=== PATIENT | female | born 1965 | race Caucasian/White ===

== ENCOUNTER → 2020-05-23 13:31 | Outpatient (BNVA) | payer OTHER, SELFPAY | PROVIDERS: PCP Internal Medicine; Referring Provider Internal Medicine; Visit Provider Nurse Practitioner | DX: Z76.89 Persons encountering health services in other specified circumstances (principal) ==

== ENCOUNTER → 2020-06-13 08:31 | Outpatient (BNVA) | payer OTHER, SELFPAY | PROVIDERS: Visit Provider Obstetrics & Gynecology | DX: Z76.89 Persons encountering health services in other specified circumstances (principal) ==

== ENCOUNTER 2020-06-16 12:48 | Outpatient (REF) | payer OTHER, SELFPAY ==
--- NOTE | 2020-06-16 13:05 | MR_ITS ---
EXAMINATION: MR BREAST WITHOUT AND WITH CONTRAST, BILATERAL CLINICAL INFORMATION: High-risk screening, calculated lifetime risk is reported at 41% by the Lucy model. Personal history of right breast atypia (ALH) in 2016. COMPARISON: Bilateral mammogram 03/22/2020, bilateral breast MRI 01/26/2016. TECHNIQUE: Imaging was performed with a dedicated breast coil. Prior to the administration of contrast, bilateral axial T1 and bilateral axial T2 weighted sequences were obtained. After the uneventful administration of?5.5 mL of Gadavist, dynamic contrast-enhanced VIBRANT series through the breasts in the axial plane were performed. Subtracted images were performed and reviewed. A delayed sagittal sequence through both breasts was acquired. Additionally, CAD post-processing, including maximum intensity projections, 3-D reconstructions and kinetic analysis, were performed an independent workstation and reviewed by the interpreting radiologist is a portion of this exam. FINDINGS: The breast tissue is composed of heterogeneously dense fibroglandular elements. There is minimal patchy parenchymal enhancement present bilaterally, which allowing for differences in scanning technique appears stable compared with 2016. LEFT BREAST: There are scattered enhancing foci present. A bilobed cyst is seen in the 9 o'clock position, posterior depth measuring 1.6 x 1.0 cm. In the 9 o'clock position, middle depth, 2 cm from the nipple (subtracted sequence image 79 of 124), there is an indistinct oval enhancing nodule measuring 0.6 cm; this demonstrates more prominent enhancement than on the prior exam and has indeterminate enhancement kinetics (type II enhancement curve). There is no skin thickening or nipple retraction present. RIGHT BREAST: There are scattered enhancing foci which one allowing for differences in technique, are stable. No suspicious masslike or non-masslike enhancement. No abnormal skin thickening or nipple retraction. No abnormal architectural distortion. Review of the T2 weighted images demonstrates no fibrocystic changes or dilated ducts. Review of kinetic images reveals no additional findings. There is no suspicious internal mammary chain or axillary adenopathy. Limited views of the chest and abdomen are unremarkable. There is a nonenhancing cyst in the left lobe of the liver measuring 1.5 cm. MR/MR breast BI wo/w con IMPRESSION: Oval enhancing nodule in the 9 o'clock position of the left breast has become more prominent and demonstrates indeterminate enhancement kinetics. ASSESSMENT: LEFT BREAST: BI-RADS 4, suspicious. RIGHT BREAST: BI-RADS 1, negative. RECOMMENDATIONS: MR-guided core biopsy is recommended for enhancing 0.6 cm nodule in the medial left breast. Results were called to Nieves Howell MA on 06/22/20 at 3:25 pm.
[2020-06-16 13:43] LABS: Blood Urea Nitrogen 12 mg/dL (9-16); Estimated Glomerular Filt Rate > 60
== END 2020-06-16 12:49 | disposition home or self-care (01) ==
LOC: HO.MRI 12:48
PROVIDERS: Visit Provider Obstetrics & Gynecology
DX: Z91.89 Other specified personal risk factors, not elsewhere classified (principal)
CPT/HCPCS: 77049; 82565; 84520; A9585

== ENCOUNTER 2020-07-12 08:58 | Outpatient (REF) | payer OTHER, SELFPAY ==
--- NOTE | 2020-07-12 | MM_ITS ---
This exam is included in a single combined report along with the MR guided left breast biopsy under accession number [id number].
--- NOTE | 2020-07-12 09:02 | MR_ITS ---
EXAMINATION: MR GUIDED VACUUM-ASSISTED CORE BIOPSY BREAST, LEFT MM DIGITAL MAMMOGRAPHY POST BIOPSY, LEFT CLINICAL INFORMATION: Indistinct oval enhancement 0.6 cm mid 9:00 right breast on recent high risk screening MRI. COMPARISON: MRI bilateral breasts 06/16/2020, mammography 03/22/2020. TECHNIQUE/PROCEDURE: Informed consent was obtained from the patient after discussion of the benefits, risks, and alternatives to biopsy today. Patient appeared to understand. Gave opportunity for questions. Patient signed consent form. Biopsy is performed under MRI guidance using breast surface coil. Imaging is performed without and with use of 5.5 mL Gadavist gadolinium contrast. [employer] introducer localization system is used with grid. LESION: Indistinct 0.6 cm oval enhancement 9:00 position anterior to bilobed cyst. LOCAL ANESTHESIA: 5 mL 1% lidocaine; 11 mL 1% lidocaine with epinephrine. NEEDLE: Jiong[employer] App 9-gauge vacuum assisted core biopsy device. APPROACH: Medial lateral approach was initially targeted. Due to grid arrangement limitations, access to the lesion was not possible from the medial side. Subsequently, targeting an procedure done lateral medial approach. CORES: 9. CLIP: TriMark cylinder shape clip deployed. Sheath removed and examined. No clip demonstrated in sheath. POSTPROCEDURE UNILATERAL DIGITAL MAMMOGRAM: Mammography is performed using digital mammography in CC, exaggerated CC, and ML views. There are scattered areas of fibroglandular density (ACR BI-RADS breast composition Category b). The clip marker is not demonstrated. No gross hematoma. The patient tolerated the procedure well. Home instructions reviewed with the patient. Final pathology results are pending. MR/MR guided breast biopsy LT IMPRESSION: 1. Status post MRI guided vacuum-assisted core biopsy left breast. 2. The biopsy clip marker is not demonstrated on the post-procedure mammogram. 3. Final pathology results pending. An addendum report will be issued.
[2020-07-12] MEDS: Lidocaine HCl 1 % MPF 5 ML VIAL SUBCUT (11:23)
[2020-07-12] MEDS: Lidocaine HCl 1%/Epi 1:100,000 20 ML VIAL INFILTRATI (11:28)
== END 2020-07-12 08:59 | disposition home or self-care (01) ==
LOC: HO.MRI 08:58
PROVIDERS: Visit Provider Obstetrics & Gynecology
DX: N63.20 Unspecified lump in the left breast, unspecified quadrant (principal); N64.9 Disorder of breast, unspecified; Z91.89 Other specified personal risk factors, not elsewhere classified; R92.0 Mammographic microcalcification found on diagnostic imaging of breast
CPT/HCPCS: 19085; 77065; 88305; A4648; A9585

== ENCOUNTER → 2020-08-30 14:18 | Outpatient (BNVA) | payer OTHER, SELFPAY | PROVIDERS: PCP Internal Medicine; Visit Provider Nurse Practitioner ==

== ENCOUNTER 2021-03-28 09:35 | Outpatient (REF) | payer OTHER, SELFPAY ==
--- NOTE | ~2021-03-28 | MM_ITS ---
EXAMINATION: MM DIAGNOSTIC DIGITAL BREAST TOMOSYNTHESIS, BILATERAL CLINICAL INFORMATION: Due for yearly. Also follow-up probable benign calcifications posterior outer right breast, possibly vascular. Difficulty targeting calcifications for sampling on 03/04/2019. Calcifications under extended surveillance. Prior history ALH right breast 2015 and ADH left breast 2010. Prior history benign left MR biopsy 07/12/2020 (benign breast tissue with fibrocystic changes and microcalcifications). The lifetime risk of breast cancer based on the Tyrer-Cuzick Model is 31%. COMPARISON: Mammography: 07/12/2020, 03/22/2020, 09/15/2019, 03/04/2019, 02/23/2019, 08/25/2018, 02/20/2018. TECHNIQUE: Digital breast tomosynthesis is performed in both the craniocaudal and mediolateral oblique views along with computer-aided detection (CAD). Synthesized 2D images are generated from the tomosynthesis. Additional magnification right CC and magnification right ML views are obtained. FINDINGS: There are scattered areas of fibroglandular density (ACR BI-RADS breast composition Category b). Breast tissue composition borders on heterogeneously dense. Parenchymal pattern is similar to prior studies. There is stable bilobed cyst posterior medial left breast. Smaller stable nodule right upper outer quadrant. No significant mass or architectural abnormality. The skin contours are smooth. Right breast calcifications for follow-up are stable from prior diagnostic magnification views. No change in past 2 years consistent with benign calcifications. Results are discussed with the patient at time of visit. MM/MM tomosynthesis diagnostic BI IMPRESSION: 1. No mammographic evidence of malignancy. 2. Right breast calcifications are stable and now considered to be benign. ASSESSMENT: BI-RADS 2: Benign RECOMMENDATION: 1. Routine annual mammography screening. 2. The lifetime risk of breast cancer based on the Tyrer-Cuzick Model is 31%. Additional annual adjunct screening with breast MRI may be of benefit in women with a risk score of 20% or greater. This patient's information was entered into a reminder system with a target due date for their next mammogram.
--- NOTE | ~2021-03-28 | MM_ITS ---
EXAMINATION: BONE DENSITOMETRY CLINICAL INDICATION: Myalgia, unspecified site. COMPARISON: Previous BD dated 09/21/2014 and baseline BD dated 07/25/2010. TECHNIQUE: Using a [employer] DXA System (software version: 13.1) manufactured by [employer], dual-energy x-ray absorptiometry was performed of the lumbar spine and left hip. The images are of good technical quality. Summary results are attached. FINDINGS: AP SPINE L1-L4: Current: BMD 0.921 g/cm2, Z-score -1.2, T-score -2.2, osteopenia, 3.0% decrease from previous, 7.0% decrease from baseline (<5% change is not significant). Prior: BMD 0.949 g/cm2. Baseline: BMD 0.990 g/cm2. LEFT FEMUR, NECK: Current: BMD 0.872 g/cm2, Z-score -0.1, T-score -1.2, osteopenia. Prior: BMD 0.951 g/cm2. Baseline: BMD 0.960 g/cm2. LEFT FEMUR, TOTAL: Current: BMD 0.890 g/cm2, Z-score -0.1, T-score -0.9, normal, 5.6% decrease from previous, 4.3% decrease from baseline (<5% change is not significant). Prior: BMD 0.943 g/cm2. Baseline: BMD 0.930 g/cm2. IDENTIFIED RISK FACTORS: Osteoporosis, low calcium intake, history of fracture (adult), secondary osteoporosis, menopause. HISTORY OF FRACTURE: Wrist. MEDICATIONS: None listed. MM/XR DEXA axial skeleton IMPRESSION: 1. DIAGNOSIS: Osteopenia based on the lowest T-score value of -2.2 in the lumbar spine applying World Health Organization criteria. 2. 10-YEAR FRACTURE RISK PREDICTION, FRAX: Major osteoporotic fracture (clinical spine, forearm, hip or shoulder) 9.6%. Hip fracture 0.7%. 3. Treatment Recommendations: NOF guidelines recommend consideration for treatment in postmenopausal women and men age 50 and older presenting with the following: -A hip or vertebral (clinical or morphometric) fracture. -T-score less than or equal to -2.5 at the femoral neck or spine after appropriate evaluation to exclude secondary causes. -Low bone mass at the hip or spine and a 10-year fracture probability by FRAX of greater than or equal to 3% for hip fracture or greater than or equal to 20% for major osteoporotic fracture based on the [place] adapted WHO algorithm. 4. Other Recommendations: All treatment decisions require clinical judgment and consideration of individual patient factors, including patient preferences, comorbidities, previous drug use, risk factors not captured in the FRAX model (e.g. frailty, falls, vitamin D deficiency, increased bone turnover, interval significant decline in bone density) and possible under or overestimation of fracture risk by FRAX. Additional medical evaluation for secondary cause of low bone mineral density may be appropriate. FUTURE SCAN RECOMMENDATION: People with diagnosed cases of osteoporosis or at high risk for fracture should have regular bone mineral density tests. For patients eligible for Medicare, routine testing is allowed once every 2 years. The testing frequency can be increased to one year for patients who have rapidly progressing disease, those who are receiving or discontinuing medical therapy to restore bone mass, or have additional risk factors.
== END 2021-03-28 09:36 | disposition home or self-care (01) ==
LOC: HO.MAMMO 09:35
PROVIDERS: PCP Internal Medicine; Visit Provider Surgery
DX: Z13.820 Encounter for screening for osteoporosis (principal); Z78.0 Asymptomatic menopausal state; M85.80 Other specified disorders of bone density and structure, unspecified site; M79.10 Myalgia, unspecified site; R92.1 Mammographic calcification found on diagnostic imaging of breast
CPT/HCPCS: 77062; 77066; 77080

== ENCOUNTER → 2021-04-04 14:46 | Outpatient (BNVA) | payer OTHER, SELFPAY | PROVIDERS: PCP Internal Medicine; Visit Provider Obstetrics & Gynecology ==

== ENCOUNTER → 2021-04-25 13:41 | Outpatient (BNVA) | payer OTHER, SELFPAY | PROVIDERS: PCP Internal Medicine; Referring Provider Internal Medicine; Visit Provider Surgery ==

== ENCOUNTER 2021-05-16 14:32 | Outpatient (REF) | payer OTHER, SELFPAY ==
--- NOTE | ~2021-05-16 | XR_ITS ---
EXAMINATION: XR HAND, LEFT CLINICAL INFORMATION: Dislocation of the fifth digit COMPARISON: None TECHNIQUE: PA, lateral, and oblique views of the left hand. FINDINGS: There is no acute fracture or dislocation. Hyperextended appearance of the fifth digit at the distal interphalangeal joint. Joint spaces appear maintained. The soft tissues appear unremarkable. Partially visualized fixation hardware of the distal radius. XR/XR hand LT 2V IMPRESSION: Somewhat hyperextended appearance of the fifth digit with no acute osseous abnormality. No dislocation seen.
[2021-05-16 16:33] LABS: MANUAL DIFF FLAG NO
[2021-05-16 17:20] LABS: Basophils Absolute Auto 0.1 X10*3/uL (0.0-0.2); Basophils Percent Auto 2.2 % (0-2); Eosinophils Absolute Auto 0.3 X10*3/uL (0.0-0.4); Eosinophils Percent Auto 7.4 % (0-4); Hematocrit 40.1 % (37.0-47.0); Hemoglobin 12.9 g/dl (12.0-16.0); Lymphocytes Absolute Auto 1.9 X10*3/uL (1.2-4.9); Lymphocytes Percent Auto 46.3 % (20-40); Mean Corpuscular HGB Conc 32.2 g/dl (31.0-35.0); Mean Corpuscular Hemoglobin 31.5 pg (27.0-33.0); Mean Corpuscular Volume 97.8 fL (80.0-98.0); Mean Platelet Volume 11.8 fL (9.4-12.3); Monocytes Absolute Auto 0.3 X10*3/uL (0.1-1.2); Monocytes Percent Auto 7.8 % (2-11); Neutrophils Absolute Auto 1.48 x10*3/uL (2.0-8.3); Neutrophils Percent Auto 36.3 % (45-73); Platelet Count 332 X10*3/uL (160-400); Red Cell Distribution Width 13.1 % (11.0-16.0); White Blood Count 4.1 X10*3/uL (4.8-10.8)
[2021-05-16 17:49] LABS: Alanine Aminotransferase 18 U/L (0-31); Albumin Level 4.6 g/dL (3.5-5.0); Alkaline Phosphatase 77 U/L (39-117); Amylase 147 U/L (28-100); Anion Gap 13 (12-20); Aspartate Amino Transferase 30 U/L (5-31); Bilirubin Total 1.7 mg/dL (0.0-1.0); Blood Urea Nitrogen 9 mg/dL (9-16); Calcium 9.9 mg/dL (8.4-10.2); Carbon Dioxide 30 mmol/L (22-29); Chloride 104 mmol/L (96-108); Cholesterol 196 mg/dL; Estimated Glomerular Filt Rate > 60; Glucose Random 89 mg/dL (60-115); HDL Cholesterol 64 mg/dL; LDL Cholesterol Calculated 112 mg/dl; Lipase 35 U/L (8-78); Potassium 4.6 mmol/L (3.3-5.1); Sodium 142 mmol/L (135-145); Total Protein 7.2 g/dL (6.5-8.0); Triglycerides 101 mg/dL
[2021-05-16 18:10] LABS: Free T4 (Free Thyroxine) 1.02 ng/dL (0.71-1.85); Thyroid Stimulating Hormone 0.79 uIU/mL (0.32-4.0); Vitamin D 25-OH Total 42.3 ng/mL (>30)
[2021-05-16 18:36] LABS: Folate 19.7 ng/mL (> or = 4.0); Vitamin B12 287 pg/mL (200-900)
[2021-05-17 18:27] LABS: Lyme Abs Screen <0.90 index
== END 2021-05-16 14:33 | disposition home or self-care (01) ==
LOC: HO.XRAY 14:32
PROVIDERS: PCP Internal Medicine; Referring Provider Internal Medicine; Visit Provider Surgery
DX: I10 Essential (primary) hypertension (principal); E78.00 Pure hypercholesterolemia, unspecified; M79.10 Myalgia, unspecified site; S63.257A Unspecified dislocation of left little finger, initial encounter; X58.XXXA Exposure to other specified factors, initial encounter; Y93.9 Activity, unspecified; Y92.9 Unspecified place or not applicable; Y99.9 Unspecified external cause status
CPT/HCPCS: 36415; 73120; 80053; 80061; 82150; 82306; 82607; 82746; 83690; 84439; 84443; 85025; 86617; 86618

== ENCOUNTER → 2021-06-27 11:19 | Outpatient (BNVA) | payer OTHER, SELFPAY | PROVIDERS: PCP Internal Medicine; Referring Provider Internal Medicine; Visit Provider Surgery ==

== ENCOUNTER → 2021-08-01 08:32 | Outpatient (BNVA) | payer OTHER, SELFPAY | PROVIDERS: Referring Provider Internal Medicine; Visit Provider Nurse Practitioner ==

== ENCOUNTER 2021-10-27 16:08 | Outpatient (REF) | payer OTHER, SELFPAY ==
--- NOTE | ~2021-10-27 | MR_ITS ---
EXAMINATION: MR BREAST WITHOUT AND WITH CONTRAST, BILATERAL CLINICAL INFORMATION: High-risk screening, personal history of right breast ALH in 2016 and left breast ADH in 2010. Benign left breast MR guided core biopsy in 2019. COMPARISON: Bilateral mammogram 03/28/2021, bilateral breast MRI 06/16/2020 TECHNIQUE: Imaging was performed with a dedicated breast coil. Prior to the administration of contrast, bilateral axial T1 and bilateral axial T2 weighted sequences were obtained. After the uneventful administration of?5.5 mL of Gadavist, dynamic contrast-enhanced VIBRANT series through the breasts in the axial plane were performed. Subtracted images were performed and reviewed. A delayed sagittal sequence through both breasts was acquired. Additionally, CAD post-processing, including maximum intensity projections, 3-D reconstructions and kinetic analysis, were performed an independent workstation and reviewed by the interpreting radiologist is a portion of this exam. FINDINGS: The patient's fibroglandular tissue demonstrates moderate, patchy appearing bilateral background enhancement. LEFT BREAST: No suspicious masslike or non-masslike enhancement. No abnormal skin thickening or nipple retraction. No abnormal architectural distortion. Review of the T2 weighted images demonstrates no fibrocystic changes or dilated ducts. Review of kinetic images reveals no additional findings. RIGHT BREAST: There is postsurgical distortion in the lateral breast, anteriorly. No suspicious masslike or non-masslike enhancement. No abnormal skin thickening or nipple retraction. No abnormal architectural distortion. Review of the T2 weighted images demonstrates no fibrocystic changes or dilated ducts. Review of kinetic images reveals no additional findings. There is no suspicious internal mammary chain or axillary adenopathy. Limited views of the chest and abdomen are unremarkable. There has been no interval change. MR/MR breast BI wo/w con IMPRESSION: No MR specific evidence of malignancy. ASSESSMENT: LEFT BREAST: BI-RADS 1-Negative RIGHT BREAST: BI-RADS 1-Negative RECOMMENDATIONS: Recommend yearly screening mammogram in March 2022 and repeat MRI as clinically indicated.
[2021-10-27 16:11] LABS: Blood Urea Nitrogen 9 mg/dL (9-16); Estimated Glomerular Filt Rate > 60
== END 2021-10-27 16:09 | disposition home or self-care (01) ==
LOC: HO.MRI 16:08
PROVIDERS: PCP Internal Medicine; Visit Provider Surgery
DX: N60.91 Unspecified benign mammary dysplasia of right breast (principal); N60.92 Unspecified benign mammary dysplasia of left breast; Z91.89 Other specified personal risk factors, not elsewhere classified
CPT/HCPCS: 36415; 77049; 82565; 84520; A9585

== ENCOUNTER 2021-12-23 10:44 | Outpatient (REF) | payer OTHER, SELFPAY | END 2021-12-23 10:45 | disposition home or self-care (01) | LOC: HO.LAB 10:44 | PROVIDERS: PCP Internal Medicine; Visit Provider Internal Medicine | DX: Z13.89 Encounter for screening for other disorder (principal) ==

== ENCOUNTER 2021-12-25 15:49 | Outpatient (REF) | payer OTHER, SELFPAY ==
[2021-12-26 08:39] LABS: HBS Num1 270.95 mIU/mL (0-7.99); HBc Num1 0.06 S/CO (0.00-0.79); HBsAGNum1 0.24 S/CO (0.00-0.99); Hepatitis B Core Antibody Nonreactive (Nonreactive); Hepatitis B Surface Antigen Negative (Negative); ~HepC Num1 0.07 S/CO (0.00-0.79); ~Hepatitis B Surface Antibody REACTIVE (Nonreactive); ~Hepatitis C Antibody Nonreactive (Nonreactive)
[2021-12-26 11:53] LABS: Rubella IgG Antibody 9.64 Index; Rubeola IgG (Measles) >300.00 AU/mL
[2021-12-27 21:02] LABS: TS Negative Control Passed; TS Panel A 0; TS Panel B 0; TS Positive Control Passed; TSpotTB Negative (Negative)
== END 2021-12-25 15:50 | disposition home or self-care (01) ==
LOC: HO.LAB 15:49
PROVIDERS: PCP Internal Medicine; Visit Provider Internal Medicine
DX: Z02.0 Encounter for examination for admission to educational institution (principal); R79.89 Other specified abnormal findings of blood chemistry
CPT/HCPCS: 36415; 86481; 86704; 86706; 86735; 86762; 86765; 86787; 86803; 87340

== ENCOUNTER 2022-04-19 14:02 | Outpatient (REF) | payer OTHER, SELFPAY ==
--- NOTE | ~2022-04-19 | MM_ITS ---
EXAMINATION: MM SCREENING DIGITAL BREAST TOMOSYNTHESIS, BILATERAL CLINICAL INFORMATION: Screening. Asymptomatic. Family history breast cancer, mother. Prior history ALH right breast 2016 and ADH left breast 2010. Prior history benign left MR biopsy 07/12/2020 (benign breast tissue with fibrocystic changes and microcalcifications). The lifetime risk of breast cancer based on the Tyrer-Cuzick Model is 31%. COMPARISON: Mammography: 03/28/2021, 07/12/2020 03/22/2020, 09/15/2019, 03/04/2019, 02/23/2019 TECHNIQUE: Digital breast tomosynthesis is performed in both the craniocaudal and mediolateral oblique views along with computer-aided detection (CAD). Synthesized 2D images are generated from the tomosynthesis. FINDINGS: There are scattered areas of fibroglandular density (ACR BI-RADS breast composition Category b). Breast tissue composition borders on heterogeneously dense. There are no significant masses, abnormal calcifications, or other abnormalities. Parenchymal pattern is similar to prior studies. There is no developing density or architectural abnormality. The axilla and skin contours are unremarkable. No significant changes. MM/MM tomosynthesis screening BI IMPRESSION: No mammographic evidence of malignancy. ASSESSMENT: BI-RADS 1: Negative RECOMMENDATION: 1. Routine annual mammography screening. 2. Consider additional annual adjunct screening with breast MRI as clinical risk factors warrant. This patient's information was entered into a reminder system with a target due date for their next mammogram.
== END 2022-04-19 14:03 | disposition home or self-care (01) ==
LOC: HO.MAMMO 14:02
PROVIDERS: Visit Provider Obstetrics & Gynecology
DX: Z12.31 Encounter for screening mammogram for malignant neoplasm of breast (principal)
CPT/HCPCS: 77063; 77067

== ENCOUNTER 2022-10-04 09:47 | Outpatient (REF) | payer OTHER, SELFPAY ==
[2022-10-04 10:44] LABS: Basophils Absolute Auto 0.1 X10*3/uL (0.0-0.2); Basophils Percent Auto 3.6 % (0-2); Eosinophils Absolute Auto 0.3 X10*3/uL (0.0-0.4); Eosinophils Percent Auto 9.4 % (0-4); Hemoglobin 12.9 g/dl (12.0-16.0); Imm Gran Abs Auto 0.01 X10*3/uL (0.00-0.03); Imm Gran Pct Auto 0.3 % (0.0-0.4); Immature Retic Fraction 6.9 % (3.0-15.9); Lymphocytes Absolute Auto 1.4 X10*3/uL (1.2-4.9); Lymphocytes Percent Auto 45.5 % (20-40); MANUAL DIFF FLAG SCAN; Mean Corpuscular HGB Conc 32.3 g/dl (31.0-35.0); Mean Corpuscular Hemoglobin 30.6 pg (27.0-33.0); Mean Corpuscular Volume 94.8 fL (80.0-98.0); Mean Platelet Volume 11.1 fL (9.4-12.3); Monocytes Absolute Auto 0.3 X10*3/uL (0.1-1.2); Monocytes Percent Auto 8.1 % (2-11); Neutrophils Percent Auto 33.1 % (45-73); Platelet Count 353 X10*3/uL (160-400); Red Blood Count 4.22 X10*6/uL (4.20-5.50); Red Cell Distribution Width 13.1 % (11.0-16.0); Retic HGB Equivalent 33.9 pg (30.0-35.0); Reticulocyte Percent 1.1 % (0.5-1.8); Reticulocytes Absolute 0.044 X10*6/uL (0.026-0.095); SCAN SMEAR FLAG 1; White Blood Count 3.1 X10*3/uL (4.8-10.8)
[2022-10-04 11:20] LABS: SLIDE REVIEW VERIFIED
[2022-10-04 11:25] LABS: Alanine Aminotransferase 17 U/L (0-31); Albumin Level 4.3 g/dL (3.5-5.0); Alkaline Phosphatase 78 U/L (39-117); Anion Gap 13 (12-20); Aspartate Amino Transferase 25 U/L (5-31); Bilirubin Total 1.5 mg/dL (0.0-1.0); Blood Urea Nitrogen 8 mg/dL (9-16); C Reactive Protein < 0.10 mg/dL (< or = 0.50); Calcium 9.8 mg/dL (8.4-10.2); Carbon Dioxide 30 mmol/L (22-29); Chloride 104 mmol/L (96-108); Cholesterol 205 mg/dL; Estimated Glomerular Filt Rate > 60; Glucose Random 92 mg/dL (60-115); HDL Cholesterol 62 mg/dL; Iron 100 mcg/dL (30-160); LDL Cholesterol Calculated 131 mg/dl; Percent Iron Saturation 33 % (15-50); Potassium 4.6 mmol/L (3.3-5.1); Sodium 142 mmol/L (135-145); Total Iron Binding Capacity 303 mcg/dL (228-428); Total Protein 6.7 g/dL (6.5-8.0); Triglycerides 63 mg/dL; Unsaturated Iron Binding 203 ug/dL
[2022-10-04 11:40] LABS: Ferritin 16 ng/mL (10-250); Folate 17.3 ng/mL (> or = 4.0); Free T4 (Free Thyroxine) 0.94 ng/dL (0.71-1.85); Thyroid Stimulating Hormone 0.67 uIU/mL (0.32-4.0); Vitamin B12 376 pg/mL (200-900); Vitamin D 25-OH Total 46.2 ng/mL (>30)
[2022-10-04 11:53] LABS: Erythrocyte Sedimentation Rate 5 MM/HR (0-20)
== END 2022-10-04 09:48 | disposition home or self-care (01) ==
LOC: HO.LAB 09:47
PROVIDERS: Absent Provider Internal Medicine; PCP Internal Medicine; Visit Provider Surgery
DX: E78.00 Pure hypercholesterolemia, unspecified (principal); I10 Essential (primary) hypertension; K13.0 Diseases of lips; N60.91 Unspecified benign mammary dysplasia of right breast; N60.92 Unspecified benign mammary dysplasia of left breast; Z91.89 Other specified personal risk factors, not elsewhere classified; D64.9 Anemia, unspecified; Z79.899 Other long term (current) drug therapy
CPT/HCPCS: 36415; 80053; 80061; 82306; 82607; 82728; 82746; 83540; 84439; 84443; 85025; 85045; 85652; 86140

== ENCOUNTER 2022-12-07 09:37 | Outpatient (REF) | payer OTHER, SELFPAY ==
--- NOTE | ~2022-12-07 | MR_ITS ---
EXAMINATION: MR BREAST WITHOUT AND WITH CONTRAST, BILATERAL CLINICAL INFORMATION: High-risk screening. 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 Mother with breast cancer. COMPARISON: 10/27/2021 and 06/16/2020. Mammography from 04/19/2022. TECHNIQUE: Imaging was performed with a dedicated breast coil. Prior to the administration of contrast, bilateral axial T1 and bilateral axial T2 weighted sequences were obtained. After the uneventful administration of?7 mL of Gadavist, dynamic contrast-enhanced VIBRANT series through the breasts in the axial plane were performed. Subtracted images were performed and reviewed. A delayed sagittal sequence through both breasts was acquired. Additionally, CAD post-processing, including maximum intensity projections, 3-D reconstructions and kinetic analysis, were performed an independent workstation and reviewed by the interpreting radiologist is a portion of this exam. FINDINGS: The breasts are comprised of scattered fibroglandular elements. The tissue undergoes persistent moderate background enhancement. LEFT BREAST: There is an oval, relatively circumscribed, 6 mm enhancing left breast mass at 5 o'clock (series 100 image 66/102, series 9 image 28/100) projecting 2 cm from the nipple. Mass is T2 dark. Type I and type II plateau enhancement kinetics. Further evaluation with MR directed diagnostic second look ultrasound, and biopsy as indicated is advised. There is susceptibility artifact and subtle architectural distortion in the subareolar lower outer quadrant of the left breast, site of prior excision for ductal atypia. No associated enhancement. RIGHT BREAST: Susceptibility artifact and architectural distortion in the right upper outer quadrant from prior excision for lobular neoplasia. No abnormal associated enhancement. Stable intramammary node on the right at 8 o'clock posteriorly (image 64/102). No suspicious right breast mass or dominant non-mass enhancement. No change from priors given differences in technique. There is no suspicious internal mammary chain or axillary adenopathy. Limited views of the chest and abdomen are unremarkable. MR/MR breast BI wo/w con IMPRESSION: 1. A new 6 mm left breast mass at 5 o'clock, 2 cm from the nipple. 2. Postoperative changes bilaterally as above. ASSESSMENT: LEFT BREAST: BI-RADS 4, suspicious finding. RIGHT BREAST: BI-RADS 2, benign finding. RECOMMENDATIONS: 1. Recommend MR directed diagnostic second look left breast ultrasound. 2. Recommend biopsy under ultrasound or MR guidance as indicated. This critical result was discussed with Millan RN at 9:30 AM on 12/14/2022 and it was ascertained that the content and urgency of the report was understood at the time of direct communication.
== END 2022-12-07 09:38 | disposition home or self-care (01) ==
LOC: HO.MRI 09:37
PROVIDERS: PCP Internal Medicine; Visit Provider Surgery
DX: L30.9 Dermatitis, unspecified (principal); N60.91 Unspecified benign mammary dysplasia of right breast; N60.92 Unspecified benign mammary dysplasia of left breast; Z91.89 Other specified personal risk factors, not elsewhere classified; Z91.09 Other allergy status, other than to drugs and biological substances
CPT/HCPCS: 36415; 77049; 82785; 86003; A9585

== ENCOUNTER 2022-12-20 09:28 | Outpatient (REF) | payer OTHER, SELFPAY ==
--- NOTE | ~2022-12-20 | US_ITS ---
EXAMINATION: US DIAGNOSTIC ( SECOND LOOK ) ULTRASOUND BREAST, LEFT CLINICAL INFORMATION: High risk MRI breasts screening demonstrates new 6 mm enhancement anterior 5:00 left breast with mixed type I/II kinetics. Prior history ADH left breast, 2010; ALH right breast, 2015; benign left MR biopsy 07/12/2020. Family history breast cancer, mother. COMPARISON: MRI 12/07/2022, 10/27/2021, digital breast tomosynthesis 04/23/2022, MR guided biopsy left breast 07/12/2020. TECHNIQUE: Ultrasound left breast is targeted to the lower breast 4:00 through 8:00 position using grayscale imaging and color Doppler without and with harmonics. Patient imaged with arm down and normal. FINDINGS: There is no focal suspicious finding. There is no ultrasound correlate for the finding on MRI. Results are discussed with the patient at time of visit. Tissue sampling may be performed with MR guided biopsy. Results and recommendation called to medical transcription radiology (Katerin) for Dr. Barrios on 12/20/2022. US/US breast LT limited IMPRESSION: -No ultrasound correlate for the MRI enhancement anterior 5:00 left breast. ASSESSMENT: BI-RADS 1: Negative RECOMMENDATION: -Tissue sampling for recent MRI finding left breast may be performed under MRI guidance. This patient's information was entered into a reminder system with a target due date for their next mammogram.
== END 2022-12-20 09:29 | disposition home or self-care (01) ==
LOC: HO.MAMMO 09:28
PROVIDERS: PCP Internal Medicine; Visit Provider Surgery
DX: R92.8 Other abnormal and inconclusive findings on diagnostic imaging of breast (principal)
CPT/HCPCS: 76642

== ENCOUNTER 2022-12-27 07:43 | Outpatient (REF) | payer OTHER, SELFPAY ==
--- NOTE | ~2022-12-27 | MR_ITS ---
EXAMINATION: MR GUIDED VACUUM-ASSISTED CORE BIOPSY BREAST, LEFT MM DIGITAL BREAST TOMOSYNTHESIS POST BIOPSY, LEFT CLINICAL INFORMATION: New 6 mm enhancing nodule 5:00 position 2 cm from nipple. Negative second look ultrasound. Prior history ADH left breast, 2010; ALH right breast, 2016. Prior benign left MR breast biopsy 07/12/2020 (clip did not deploy). COMPARISON: MRI breasts 12/07/2022, second look left breast ultrasound 12/20/2022, bilateral digital breast tomosynthesis 04/19/2022. TECHNIQUE/PROCEDURE: Informed consent was obtained from the patient after discussion of the benefits, risks, and alternatives to biopsy today. Patient appeared to understand. Gave opportunity for questions. Patient signed consent form. Biopsy is performed under MRI guidance using breast surface coil. Imaging is performed without and with use of 5.5 mL Gadavist gadolinium contrast. [employer] E2MS introducer localization system is used with grid. LESION: Enhancing nodule anterior lower inner left breast. LOCAL ANESTHESIA: 10 mL carbonated 1% lidocaine; 10 mL 1% lidocaine with epinephrine. NEEDLE: Data[employer]itro 9-gauge vacuum assisted core biopsy device. APPROACH: Lateral medial. CORES: 10. CLIP: TriMark cylinder shaped. POSTPROCEDURE UNILATERAL DIGITAL MAMMOGRAM: Mammography left breast is performed using digital breast tomosynthesis in CC and Oviews. Synthesized 2-D images are generated from the tomography. There are scattered areas of fibroglandular density (ACR BI-RADS breast composition Category b). The clip marker is in position. No gross hematoma. The patient tolerated the procedure well. No immediate complications. Home instructions reviewed with the patient. Final pathology results are pending. MR/MR guided breast biopsy LT IMPRESSION: 1. Status post MRI guided vacuum-assisted core biopsy left breast with clip placement. 2. Final pathology results pending. An addendum report will be issued.
--- NOTE | ~2022-12-27 | MM_ITS ---
EXAMINATION: MR GUIDED VACUUM-ASSISTED CORE BIOPSY BREAST, LEFT MM DIGITAL BREAST TOMOSYNTHESIS POST BIOPSY, LEFT CLINICAL INFORMATION: New 6 mm enhancing nodule 5:00 position 2 cm from nipple. Negative second look ultrasound. Prior history ADH left breast, 2010; ALH right breast, 2016. Prior benign left MR breast biopsy 07/12/2020 (clip did not deploy). COMPARISON: MRI breasts 12/07/2022, second look left breast ultrasound 12/20/2022, bilateral digital breast tomosynthesis 04/19/2022. TECHNIQUE/PROCEDURE: Informed consent was obtained from the patient after discussion of the benefits, risks, and alternatives to biopsy today. Patient appeared to understand. Gave opportunity for questions. Patient signed consent form. Biopsy is performed under MRI guidance using breast surface coil. Imaging is performed without and with use of 5.5 mL Gadavist gadolinium contrast. [employer]Event introducer localization system is used with grid. LESION: Enhancing nodule anterior lower inner left breast. LOCAL ANESTHESIA: 10 mL carbonated 1% lidocaine; 10 mL 1% lidocaine with epinephrine. NEEDLE: [employer] 9-gauge vacuum assisted core biopsy device. APPROACH: Lateral medial. CORES: 10. CLIP: TriMark cylinder shaped. POSTPROCEDURE UNILATERAL DIGITAL MAMMOGRAM: Mammography left breast is performed using digital breast tomosynthesis in and [employer]views. Synthesized 2-D images are generated from the tomography. There are scattered areas of fibroglandular density (ACR BI-RADS breast composition Category b). The clip marker is in position. No gross hematoma. The patient tolerated the procedure well. No immediate complications. Home instructions reviewed with the patient. Final pathology results are pending. MM/MM tomosynthesis diagnostic LT IMPRESSION: 1. Status post MRI guided vacuum-assisted core biopsy left breast with clip placement. 2. Final pathology results pending. An addendum report will be issued.
[2022-12-27] MEDS: Lidocaine HCl 1 % MPF 5 ML VIAL SUBCUT ×2 (09:26→09:27)
[2022-12-27] MEDS: Lidocaine HCl 1%/Epi 1:100,000 10 ML VIAL SUBCUT (09:27)
== END 2022-12-27 07:44 | disposition home or self-care (01) ==
LOC: HO.MRI 07:43
PROVIDERS: PCP Internal Medicine; Visit Provider Surgery
DX: R92.8 Other abnormal and inconclusive findings on diagnostic imaging of breast (principal); N63.24 Unspecified lump in the left breast, lower inner quadrant
CPT/HCPCS: 19085; 77061; 77065; 88307; A4648; A9585

== ENCOUNTER → 2023-01-08 10:26 | Outpatient (BNVA) | payer OTHER, SELFPAY | PROVIDERS: PCP Internal Medicine; Visit Provider Surgery ==

== ENCOUNTER 2023-03-21 15:57 | Outpatient (AMB) | payer OTHER, SELFPAY ==
--- NOTE | 2023-03-21 16:12 | MHC.PC.OV ---
Vital Signs 03/21/23 16:13 Height 5 ft 4 in Weight 121 lb BMI 20.8 BP 140/80 H Blood Pressure Location Lt brachial Position Sitting Pulse 62 Pulse Source Pulse Oximeter Temp Source Skin Pulse Oximetry (%) 99 Oxygen Delivery Method Room Air Intake Visit Reasons: iritis,HTN Investment Officer Required: No Allergies bee pollen Allergy (Mild, Verified 03/21/23 16:13) swelling mold Allergy (Mild, Verified 03/21/23 16:13) swollen eyes, sneezing PEPPERS Adverse Reaction (Unknown, Uncoded 03/21/23 16:13) DIARRHEA/CRAMPS Medication List - Last Reconciled 03/21/23 by Kev Rodarte MD amlodipine 10 mg PO DAILY 90 days famotidine 20 mg PO BID Tobacco use date assessed: 03/21/23 Dental Screening Did you have a dental visit in the last 12 months?: Yes Did you have a dental problem in the last 6 months where you did not have access to dental care?: No Was dental information given to patient?: Patient has dentist HPI irichristina,HTN HPI Details 57-year-old female smoker with hypertension generalized anxiety disorder bilateral atypical ductal hyperplasia of the breast coming in for follow-up patient was last seen in November 2022 bone density last done in March 2021 do this month. 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 PAtient was given by dermatology steroid. dicsussed on the need to drink water. PAtient was back from [facility]- went back home with water in basement, cat sick. Saw Dr. Sweeney for the eye -iritis was advised not to take allergy med due to drying. Patient needs referral to gynecology for cervical cancer screening. As for the blood pressure referral done for the blood pressure medication. [facility] Medical History (Updated 03/21/23 @ 17:25 by Kev Rodarte MD) Closed right ankle fracture Anorexia nervosa Tobacco abuse Vitamin D deficiency Pulmonary nodule Elevated amylase Surgical History History of surgery on wrist Distal radius fracture, left History of ankle surgery History of lumpectomy of both breasts Hx of knee surgery History of esophagogastroduodenoscopy (EGD) Family History Father HTN (hypertension) Hx of heart surgery Cancer History of cataract surgery Prostate CA Lymphoma Mother Breast cancer Cancer Sister Schizophrenia Mental health disorder Paternal Grandmother Breast cancer Hx of heart surgery Maternal Grandmother Pancreatic cancer Social History Housing: House Alcohol intake: never Patient Tobacco Use Status: Current everyday Tobacco user Tobacco use type: Cigarette Cigarettes Per Day: 4 e-Cigarette/Vaping Use: Never Used Second Hand Smoke Exposure: Yes service: No Current occupational status: employed Cognitive needs: No Hearing needs: No Vision needs: No Female Reproductive History Menstrual Age of Menarche: 13 Questionnaire Thrive Questionnaire Date Thrive assessed: 10/05/22 AUDIT C Alcohol Use Questionnaire (AUDIT-C) 1. How often do you have a drink containing alcohol?: Never 3. How often do you have six or more drinks on one occasion?: Never Total Score: 0 KALEIGH-7 AMB Questionnaire KALEIGH-7 Date KALEIGH - 7 assessed: 10/05/22 Source: Developed by Drs. Pardeep Washburn, Porsche Zheng, Harsh Mcneil and colleagues, with an educational naina from [employer]. Physical exam (Primary Care) Vital Signs: Last Vital Signs Pulse 62 03/21/23 16:13 BP 140/80 H 03/21/23 16:13 Pulse Ox 99 03/21/23 16:13 Oxygen Delivery Method Room Air 03/21/23 16:13 Care Plan Goal for BP management: Multiple erythematous rash on the trunk arms legs thigh linear in character pruritic. BMI result Body Mass Index 20.8 Tobacco/Smoking Status: Tobacco use Status Tobacco use date assessed 03/21/23 03/21/23 16:13 Patient Tobacco Use Status Current everyday Tobacco 03/21/23 16:13 Tobacco use type Cigarette 03/21/23 16:13 e-Cigarette/Vaping Use Never Used 03/21/23 16:13 Thrive Assessment: Date of Thrive Assessment Date Thrive assessed 10/05/22 03/21/23 16:13 Const General: alert; No acute distress Eyes Conjunctivae: conjunctivae normal Resp Auscultation: clear to auscultation bilaterally Cardio Rate: regular rate Rhythm: regular rhythm GI Inspection: Yes normal to inspection Extrem General: Yes normal to inspection and No edema Assessment and Plan Assessment & Plan (1) Eczematous dermatitis: Code(s): L30.9 - Dermatitis, unspecified Plan: Patient has been seeing dermatology and was given Tacrolimus. Patient was prescribed by the dermatology steroids/prednisone for 5 days. Discussed about famotidine for urticaria as the patient was advised to hold off from allergy medication as this can dry the eyes. (2) Atypical ductal hyperplasia of breast, bilateral: Code(s): N60.91 - Unspecified benign mammary dysplasia of right breast; N60.92 - Unspecified benign mammary dysplasia of left breast Plan: Patient also follows up with the surgeon and orders the MRI of the breast (3) Tobacco abuse: Code(s): Z72.0 - Tobacco use Plan: Patient is strongly advised to stop! (4) Iritis: Code(s): H20.9 - Unspecified iridocyclitis Plan: Patient is being followed up by sedimentationist. (5) Cervical cancer screening: Code(s): Z12.4 - Encounter for screening for malignant neoplasm of cervix Plan: Referral to gynecology done Orders: Orders Thyroid Stimulating Hormone Today L30.9 - Dermatitis, unspecified Erythrocyte Sedimentation Rate Today L30.9 - Dermatitis, unspecified C Reactive Protein Today L30.9 - Dermatitis, unspecified NELSON Reflex Titer and Pattern Today L30.9 - Dermatitis, unspecified, R79.89 - Other specified abnormal findings of blood chemistry Complete Blood Count Auto Diff Today L30.9 - Dermatitis, unspecified Comprehensive Met. Panel Today L30.9 - Dermatitis, unspecified Free T4 (Free Thyroxine) Today L30.9 - Dermatitis, unspecified Referrals REAL ESTATE DIRECTOR Referral Z12.4 - Encounter for screening for malignant neoplasm of cervix Medications: New famotidine 20 mg PO BID 60 tabs 0RF L30.9 - Dermatitis, unspecified Refilled amlodipine 10 mg PO DAILY 90 days 90 tabs 2RF I10 - Essential (primary) hypertension Coding Level of Care Code Est Pt Level 4 (07862) Diagnoses Eczematous dermatitis L30.9 Atypical ductal hyperplasia of breast, bilateral N60.91; N60.92 Tobacco abuse Z72.0 Iritis H20.9 Cervical cancer screening Z12.4
[2023-03-21 16:13] VITALS: BP 140/80; PULSE 62; O2SAT 99; BMI 20.8
== END 2023-03-21 17:29 | disposition home or self-care (01) ==
PROVIDERS: PCP Internal Medicine; Visit Provider Internal Medicine
DX: L30.9 Dermatitis, unspecified (principal); N60.91 Unspecified benign mammary dysplasia of right breast; N60.92 Unspecified benign mammary dysplasia of left breast; Z72.0 Tobacco use; H20.9 Unspecified iridocyclitis; Z12.4 Encounter for screening for malignant neoplasm of cervix
CPT/HCPCS: 99214

== ENCOUNTER 2023-03-26 09:01 | Outpatient (AMB) | payer OTHER, SELFPAY ==
--- NOTE | 2023-03-26 09:04 | A.OFFVIS_ITS ---
Intake Vital Signs 03/26/23 09:11 Height 5 ft 4 in Weight 122 lb 4 oz BMI 21.0 BP 127/77 Blood Pressure Location Lt brachial Position Sitting Pulse 63 Intake Visit Reasons: 6m follow up breast exam Intake Note: Patient is seen in office for 6 month follow up visit, breast exam. 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 She has a previous history of atypical ductal hyperplasia of the right breast, s/p lumpectomy 2015 and a previous history of left breast atypical ductal hyperplasia, s/p lumpectomy in 2012. She was evaluated by Dr. Arambula and started on tamoxifen for 5 years however this was stopped due to the side effects. He was placed on a high risk breast cancer screening protocol including yearly mammogram and breast MRI and twice yearly physical examination. Her Tyrer-Cuzick lifetime remaining risk of breast cancer was determined to be 37.9%, well above the 20% threshold. Her most recent mammogram dated 04/19/2022 revealed no suspicious findings (BI-RADS 1). Her most recent MRI of 12/07/2022 revealed suspicious finding in the left breast and benign findings in the right breast (BI-RADS 4 left breast). She subsequently underwent MR guided core biops y on 12/27/2022 which revealed benign breast tissue without atypia or malignancy. She is due for her annual mammogram is scheduled for 04/25/2023. [facility] Medical History (Updated 03/21/23 @ 17:25 by Kev Rodarte MD) Closed right ankle fracture Anorexia nervosa Tobacco abuse Vitamin D deficiency Pulmonary nodule Elevated amylase Surgical History History of surgery on wrist Distal radius fracture, left History of ankle surgery History of lumpectomy of both breasts Hx of knee surgery History of esophagogastroduodenoscopy (EGD) Family History Father HTN (hypertension) Hx of heart surgery Cancer History of cataract surgery Prostate CA Lymphoma Mother Breast cancer Cancer Sister Schizophrenia Mental health disorder Paternal Grandmother Breast cancer Hx of heart surgery Maternal Grandmother Pancreatic cancer Social History Housing: House Alcohol intake: never Patient Tobacco Use Status: Current everyday Tobacco user Tobacco use type: Cigarette Cigarettes Per Day: 4 e-Cigarette/Vaping Use: Never Used Second Hand Smoke Exposure: Yes service: No Current occupational status: employed Cognitive needs: No Hearing needs: No Vision needs: No Female Reproductive History Menstrual Age of Menarche: 13 Review of Systems Const All systems reviewed & are unremarkable except as noted in HPI and below Denies chills, Denies fatigue, Denies fever(s), Denies weight gain and Denies weight loss Eyes Reports no additional complaints Card Denies chest pain, Denies rapid heart rate, Denies irregular heart rhythm and Denies palpitations Resp Denies chest congestion, Denies cough and Denies hemoptysis GI Denies abdominal pain, Denies coffee ground emesis, Denies constipation and Denies diarrhea Denies nipple discharge Skin/Breast Denies breast swelling, Denies breast skin changes, Denies breast pain, Denies breast mass, Denies change in breast shape and Denies nipple discharge Endo Denies fatigue and Denies palpitations Jayce/Lymph Denies lymphadenopathy Physical Exam Const Nutritional Appearance: well nourished Limitations: no limitations HEENT Head: Yes normocephalic and Yes atraumatic Ears: hearing grossly normal bilaterally Chest Other: Left breast:? No skin change, no nipple retraction, no nipple discharge, no palpable mass, no enlarged lymph nodes. Right breast:? No skin change, no nipple retraction, no nipple discharge, no palpable mass, no enlarged lymph nodes Resp Effort & Inspection: normal respiratory effort, no audible wheezes, no cough and no respiratory distress GI Inspection: Yes normal to inspection Skin General skin exam: no rashes or lesions noted Neuro Cognition (Neuro): normal cognition Extrem General: Yes no clubbing, cyanosis or edema Assessment & Plan Assessment & Plan (1) Atypical ductal hyperplasia of breast, bilateral: Code(s): N60.91 - Unspecified benign mammary dysplasia of right breast; N60.92 - Unspecified benign mammary dysplasia of left breast (2) At high risk for breast cancer: Code(s): Z91.89 - Other specified personal risk factors, not elsewhere classified Plan 57-year-old female patient returning today for high risk breast examination. She was diagnosed with atypical ductal hyperplasia in the left breast in 2012 and the right breast in 2015 and subsequently underwent bilateral lumpectomies. Her Tyrer-zick remaining lifetime risk of breast cancer was calculated at 31 % placing her at high risk for breast cancer. Examination today revealed no suspicious findings in either breast. She is due for her follow-up mammogram on 04/25/2023. I have asked her to return in 6 months for follow-up breast examination. She is welcome to call sooner for any new concerns. Coding Level of Care Code Est Pt Level 3 (37469) Diagnoses Atypical ductal hyperplasia of breast, bilateral N60.91; N60.92 At high risk for breast cancer Z91.89
[2023-03-26 09:11] VITALS: BP 127/77; PULSE 63; BMI 21.0
== END 2023-03-26 09:26 | disposition home or self-care (01) ==
PROVIDERS: PCP Internal Medicine; Visit Provider Surgery
DX: N60.91 Unspecified benign mammary dysplasia of right breast (principal); N60.92 Unspecified benign mammary dysplasia of left breast; Z91.89 Other specified personal risk factors, not elsewhere classified
CPT/HCPCS: 99213

== ENCOUNTER → 2023-03-26 09:01 | Outpatient (BNVA) | payer OTHER, SELFPAY | PROVIDERS: PCP Internal Medicine; Visit Provider Surgery ==

== ENCOUNTER → 2023-04-25 13:30 | Outpatient (BNV) | payer OTHER, SELFPAY | PROVIDERS: PCP Internal Medicine; Visit Provider Radiology Diagnostic Radiology | DX: Z12.31 Encounter for screening mammogram for malignant neoplasm of breast (principal) | CPT/HCPCS: 77063; 77067 ==

== ENCOUNTER 2023-04-25 13:34 | Outpatient (REF) | payer OTHER, SELFPAY ==
--- NOTE | ~2023-04-25 | MM_ITS ---
EXAMINATION: MM SCREENING DIGITAL BREAST TOMOSYNTHESIS, BILATERAL CLINICAL INFORMATION: Screening. Asymptomatic. The patient has a history of prior excision for atypical lobular hyperplasia of the right breast in 2015 and prior excision of atypical ductal hyperplasia of the left breast in 2010. Patient also had a prior benign left MR biopsy performed in 2019. At that time the tissue marker did not deploy in the breast to ryan the site of biopsy. The patient is status post MR biopsy of the 5:00 region of the left breast 2 cm from the nipple. This most recent MR biopsy was performed on 12/27/2022. Pathology from this biopsy was benign and there were no high risk lesions present in the specimen. COMPARISON: Mammography: This study is compared with prior exams dating back to 2019. TECHNIQUE: Digital breast tomosynthesis is performed in both the craniocaudal and mediolateral oblique views along with computer-aided detection (CAD). Synthesized 2D images are generated from the tomosynthesis. FINDINGS: There are scattered areas of fibroglandular density (ACR BI-RADS breast composition Category b). There are no significant masses, abnormal calcifications, or other abnormalities. There is tissue marker present in the lower portion of the left breast. This is a tissue marker was placed at the most recent, benign MR biopsy. It is located in the inferior aspect of the left breast. There are postsurgical changes in the upper outer quadrant of the right breast. This is from prior excision of atypical lobular hyperplasia in 2015. MM/MM tomosynthesis screening BI IMPRESSION: No mammographic evidence of malignancy. ASSESSMENT: BI-RADS BI-RADS 2 - Benign Findings RECOMMENDATION: Routine annual mammography screening. 1 year F/U This examination should not preclude the clinical evaluation of a suspicious palpable abnormality. This patient's information was entered into a reminder system with a target due date for their next mammogram.
== END 2023-04-25 13:35 | disposition home or self-care (01) ==
LOC: HO.MAMMO 13:34
PROVIDERS: PCP Internal Medicine; Visit Provider Internal Medicine
DX: Z12.31 Encounter for screening mammogram for malignant neoplasm of breast (principal)
CPT/HCPCS: 77063; 77067

== ENCOUNTER 2023-08-24 10:42 | Outpatient (REF) | payer OTHER, SELFPAY ==
[2023-08-24 10:55] LABS: MANUAL DIFF FLAG NO
[2023-08-24 11:09] LABS: Basophils Absolute Auto 0.1 X10*3/uL (0.0-0.2); Basophils Percent Auto 1.9 % (0-2); Eosinophils Absolute Auto 0.3 X10*3/uL (0.0-0.4); Eosinophils Percent Auto 6.7 % (0-4); Hemoglobin 13.6 g/dl (12.0-16.0); Lymphocytes Percent Auto 48.2 % (20-40); Mean Corpuscular HGB Conc 32.4 g/dl (31.0-35.0); Mean Corpuscular Hemoglobin 30.4 pg (27.0-33.0); Mean Platelet Volume 11.4 fL (9.4-12.3); Monocytes Absolute Auto 0.4 X10*3/uL (0.1-1.2); Monocytes Percent Auto 9.1 % (2-11); Neutrophils Absolute Auto 1.4 x10*3/uL (2.0-8.3); Neutrophils Percent Auto 34.1 % (45-73); Platelet Count 347 X10*3/uL (160-400); Red Blood Count 4.47 X10*6/uL (4.20-5.50); Red Cell Distribution Width 13.4 % (11.0-16.0); White Blood Count 4.2 X10*3/uL (4.8-10.8)
[2023-08-24 11:38] LABS: Alanine Aminotransferase 12 U/L (0-31); Albumin Level 4.1 g/dL (3.5-5.0); Alkaline Phosphatase 81 U/L (39-117); Anion Gap 15 (12-20); Aspartate Amino Transferase 23 U/L (5-31); Blood Urea Nitrogen 11 mg/dL (9-16); C Reactive Protein < 0.04 mg/dL (< or = 0.50); Calcium 9.8 mg/dL (8.4-10.2); Carbon Dioxide 30 mmol/L (22-29); Chloride 103 mmol/L (96-108); Estimated Glomerular Filt Rate > 60; Glucose Random 95 mg/dL (60-115); Potassium 4.5 mmol/L (3.3-5.1); Sodium 143 mmol/L (135-145)
[2023-08-24 11:46] LABS: Erythrocyte Sedimentation Rate 2 MM/HR (0-20)
[2023-08-24 11:51] LABS: Free T4 (Free Thyroxine) 1.03 ng/dL (0.71-1.85); Thyroid Stimulating Hormone 0.54 uIU/mL (0.32-4.0)
[2023-09-06 09:59] LABS: Anti Nuclear Antibody Pattern Nuclear, Speckled; Anti Nuclear Antibody Screen POSITIVE (NEGATIVE)
== END 2023-08-24 10:43 | disposition home or self-care (01) ==
LOC: HO.LAB 10:42
PROVIDERS: PCP Internal Medicine; Visit Provider Internal Medicine
DX: L30.9 Dermatitis, unspecified (principal); R79.89 Other specified abnormal findings of blood chemistry
CPT/HCPCS: 36415; 80053; 84439; 84443; 85025; 85652; 86038; 86039; 86140

== ENCOUNTER 2023-08-26 16:09 | Outpatient (AMB) | payer OTHER, SELFPAY ==
[2023-08-26 16:10] VITALS: BP 124/76; PULSE 50; O2SAT 100; BMI 21.5
--- NOTE | 2023-08-26 16:10 | MHC.PC.OV ---
Vital Signs 08/26/23 16:10 Height 5 ft 4 in Weight 125 lb 0.2 oz BMI 21.5 BP 124/76 Blood Pressure Location Lt brachial Position Sitting Pulse 50 Pulse Source Pulse Oximeter Temp Source Skin Pulse Oximetry (%) 100 Oxygen Delivery Method Room Air Intake Visit Reasons: pe Intake Note: Patient is here today for a physical. 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 Required: No Allergies bee pollen Allergy (Mild, Verified 08/26/23 16:14) swelling mold Allergy (Mild, Verified 08/26/23 16:14) swollen eyes, sneezing PEPPERS Adverse Reaction (Unknown, Uncoded 08/26/23 16:14) DIARRHEA/CRAMPS Medication List - Last Reconciled 08/26/23 by Kev Rodarte MD amlodipine 10 mg PO DAILY 90 days famotidine 20 mg PO BID Tobacco use date assessed: 08/26/23 Dental Screening Dental Screen Date: 08/26/23 Did you have a dental visit in the last 12 months?: Yes Did you have a dental problem in the last 6 months where you did not have access to dental care?: No Was dental information given to patient?: Patient has dentist HPI pe HPI Details 57-year-old female smoker with atypical ductal hyperplasia of the breast bilateral,, iritis and eczematous dermatitis coming in for physical exam last seen in March 2023. Patient's bone density is due mammogram is up-to-date. Review of the notes recent ER visit for head injury 08/22/[address] she dropped a credit card and lean forward striking the forehead on the corner of the door. post trauma dizzy [facility] Medical History (Updated 08/26/23 @ 16:24 by Kev Rodarte MD) Toe pain, left Abnormal MRI, breast Annual physical exam Viral illness Dermatitis of lip Plantar fasciitis, left Sciatic leg pain Right wrist pain Finger pain At high risk for breast cancer Myalgia Optic neuropathy, right Closed right ankle fracture Anorexia nervosa Tobacco abuse Vitamin D deficiency Pulmonary nodule Elevated amylase Surgical History History of surgery on wrist Distal radius fracture, left History of ankle surgery History of lumpectomy of both breasts Hx of knee surgery History of esophagogastroduodenoscopy (EGD) Family History (Updated 08/26/23 @ 16:29 by Kev Rodarte MD) Father HTN (hypertension) Hx of heart surgery Cancer History of cataract surgery Prostate CA Lymphoma Skin cancer Mother Breast cancer Cancer Sister Schizophrenia Mental health disorder Paternal Grandmother Breast cancer Hx of heart surgery Maternal Grandmother Pancreatic cancer Social History (Updated 08/26/23 @ 16:30 by Kve Rodarte MD) Housing: House Alcohol intake: never Patient Tobacco Use Status: Current everyday Tobacco user Tobacco use type: Cigarette Cigarettes Per Day: 4 Years Smoked: not ready to stop 08/2023 e-Cigarette/Vaping Use: Never Used Second Hand Smoke Exposure: Yes service: No Current occupational status: employed Cognitive needs: No Hearing needs: No Vision needs: No Female Reproductive History Menstrual Age of Menarche: 13 Questionnaire PHQ-9 Over the last 2 weeks, how often have you been bothered by any of the following problems? 1. Little interest or pleasure in doing things: not at all 2. Feeling down, depressed, or hopeless: not at all 3. Trouble falling or staying asleep, or sleeping too much: not at all 4. Feeling tired or having little energy: not at all 5. Poor appetite or overeating: not at all 6. Feeling bad about yourself - or that you are a failure or have let yourself or your family down: not at all 7. Trouble concentrating on things, such as reading the newspaper or watching television: not at all 8. Moving or speaking so slowly that other people could have noticed. Or the opposite - being so fidgety or restless that you have been moving around a lot more than usual: not at all 9. Thoughts that you would be better off or of hurting yourself in some way: not at all Total score: 0 Depression Screening Interpretation: Negative Depression Screening Done: Yes Source: Developed by Drs. Pardeep Washburn, Porsche Zheng, Harsh Mcneil and colleagues, with an educational naina from [employer]. Thrive Questionnaire Date Thrive assessed: 08/26/23 I am a: Patient What is your living situation today?: I have a steady place to live Within the past 12 months, did the food you bought not last and you didn't have the money to get more?: Never true Within the past 12 months, did you worry whether your food would run out before you got money to buy more?: Never true Do you have trouble paying for medicines?: No Do you have trouble getting transportation to medical appointments?: No Do you have trouble paying your heating and electricity bill?: No Do you have trouble taking care of your child, family member or friend?: No Do you have trouble with day-to-day activities such as bathing, preparing meals, shopping, managing finances, etc.?: No Are you currently unemployed and looking for a job?: No Are you interested in more education?: No Please select the resources that you would like help with: None THRIVE Score: 0 AUDIT C Alcohol Use Questionnaire (AUDIT-C) 1. How often do you have a drink containing alcohol?: Never 3. How often do you have six or more drinks on one occasion?: Never Total Score: 0 KALEIGH-7 AMB Questionnaire KALEIGH-7 Date KALEIGH - 7 assessed: 08/26/23 Feeling nervous, anxious, or on edge: 0 = Not at all Not being able to stop or control worryin = Not at all Worrying too much about different things: 0 = Not at all Trouble relaxin = Not at all Being so restless that it is hard to sit still: 0 = Not at all Becoming easily annoyed or irritable: 0 = Not at all Feeling afraid as if something awful might happen: 0 = Not at all Total KALEIGH-7 score (0-4 normal; 5-9 mild; 10-14 moderate; 15-21 severe): 0 Source: Developed by Drs. Pardeep Washburn, Porsche Zheng, Harsh Mcneil and colleagues, with an educational naina from [employer]. Review of Systems Const Denies poor appetite and Denies weakness Eyes Denies no additional complaints ENT Reports Normal hearing present, Denies dizziness, Denies nasal congestion, Denies tinnitus and Denies sore throat Card Denies chest pain, Denies syncope, Denies rapid heart rate and Denies dyspnea Resp Denies cough and Denies dyspnea GI Denies change in stool character, Reports constipation, Denies diarrhea, Denies nausea and Denies vomiting Denies urinary frequency, Denies difficulty voiding and Denies dysuria Neuro Reports Normal hearing present, Denies confusion, Denies dizziness, Denies syncope and Denies weakness Psych Denies confusion Physical exam (Primary Care) Vital Signs: Last Vital Signs Pulse 50 08/26/23 16:10 BP 124/76 08/26/23 16:10 Pulse Ox 100 08/26/23 16:10 Oxygen Delivery Method Room Air 08/26/23 16:10 BMI result Body Mass Index 21.5 Tobacco/Smoking Status: Tobacco use Status Tobacco use date assessed 08/26/23 08/26/23 16:11 Patient Tobacco Use Status Current everyday Tobacco 08/26/23 16:11 Tobacco use type Cigarette 08/26/23 16:11 e-Cigarette/Vaping Use Never Used 08/26/23 16:11 PHQ-9: PHQ-9 Score PHQ-9: Total score 0 08/26/23 16:11 Depression Screening Interpretation: Negative Thrive Assessment: Date of Thrive Assessment Date Thrive assessed 08/26/23 08/26/23 16:11 Const General: alert and awake; No confusion Orientation/consciousness: No confusion HENMT Head: Yes normocephalic Ears: external ears normal and TM's normal bilaterally Face and sinus: Yes normal facial exam Mouth: moist mucous membranes Throat: Yes tonsils normal Eyes Conjunctivae: conjunctivae normal Pupils: Equal, round and reactive pupils present and Pupil accommodation reflex normal Direct Ophthalmoscopy: normal light reflex Neck Neck: No lymphadenopathy Thyroid: Thyroid normal Chest Chest palpation & inspection: normal inspection of the chest Resp Effort & Inspection: normal respiratory effort and no audible wheezes Auscultation: clear to auscultation bilaterally, no crackles, no wheezes and lung sounds not diminished Cardio Rate: regular rate Rhythm: regular rhythm Peripheral pulses: radial pulses present and dorsalis pedis present GI Palpation (GI): no masses Auscultation: normal bowel sounds and normoactive bowel sounds Rectal Exam - Female: deferred Skin General skin exam: no rashes or lesions noted Rashes: no rashes Neuro General: deep tendon reflexes 2+ bilaterally and No confusion Cranial nerves: Yes Equal, round and reactive pupils present, Yes Midline tongue present, Yes Normal hearing present and Yes Ability to bilaterally elevate shoulders present Cognition (Neuro): normal cognition Gait exam (Neuro): Normal gait present Motor exam (neuro): 5/5 motor strength present throughout Deep tendon reflexes (DTR's): Right brachioradialis reflex intensity grade: 2+, Left brachioradialis reflex intensity grade: 2+, Right patellar reflex intensity grade: 2+ and Left patellar reflex intensity grade: 2+ Extrem General: No edema Assessment and Plan Assessment & Plan (1) Annual physical exam: Code(s): Z00.00 - Encounter for general adult medical examination without abnormal findings (2) Atypical ductal hyperplasia of breast, bilateral: Code(s): N60.91 - Unspecified benign mammary dysplasia of right breast; N60.92 - Unspecified benign mammary dysplasia of left breast Plan: Continue to follow-up with the surgeon and up-to-date with mammogram (3) Colon cancer screening: Code(s): Z12.11 - Encounter for screening for malignant neoplasm of colon Plan: Discussed about colon cancer screening (4) Tobacco abuse: Code(s): Z72.0 - Tobacco use Plan: Patient is strongly advised to stop smoking (5) Generalized anxiety disorder: Comment: [facility] Counseling Code(s): F41.1 - Generalized anxiety disorder Plan: Continue with counseling and therapy (6) Hypertension: Code(s): I10 - Essential (primary) hypertension Plan: Continue with blood pressure medication. Decrease salt intake and exercise Orders: Referrals Gastroenterology Referral Z12.11 - Encounter for screening for malignant neoplasm of colon Medications: Changed From famotidine 20 mg PO BID 60 tabs 3RF L30.9 - Dermatitis, unspecified To famotidine URTICARIA 20 mg PO BID 60 tabs 3RF L30.9 - Dermatitis, unspecified Coding Level of Care Code Est Pt Prev Care 40-64y(29028) Diagnoses Annual physical exam Z00.00 Atypical ductal hyperplasia of breast, bilateral N60.91; N60.92 Colon cancer screening Z12.11 Tobacco abuse Z72.0 Generalized anxiety disorder F41.1 Hypertension I10
== END 2023-08-26 16:51 | disposition home or self-care (01) ==
PROVIDERS: Visit Provider Internal Medicine
DX: Z00.00 Encounter for general adult medical examination without abnormal findings (principal); N60.91 Unspecified benign mammary dysplasia of right breast; N60.92 Unspecified benign mammary dysplasia of left breast; Z12.11 Encounter for screening for malignant neoplasm of colon; Z72.0 Tobacco use; F41.1 Generalized anxiety disorder; I10 Essential (primary) hypertension
CPT/HCPCS: 99396

== ENCOUNTER 2023-10-01 08:55 | Outpatient (AMB) | payer OTHER, SELFPAY ==
--- NOTE | 2023-10-01 09:00 | MHC.OFFVIS ---
Intake Vital Signs 10/01/23 09:03 Height 5 ft 4 in Weight 123 lb 0.287 oz BMI 21.1 BP 110/70 Blood Pressure Location Lt brachial Position Sitting Intake Visit Reasons: 6m follow up breast exam Intake Note: Patient is seen in office for 6 month follow up visit, breast exam. Patient c/o: denies any concerns regarding the breast, DUE for breast MRI 11/2023 mm: 04/25/24 Marine Habitat Resource Specialist Required: No Rehabilitation Program Coordinator: Rehabilitation Program Coordinator Present Accompanied by: Self / Same As Patient Allergies bee pollen Allergy (Mild, Verified 10/01/23 09:04) swelling mold Allergy (Mild, Verified 10/01/23 09:04) swollen eyes, sneezing PEPPERS Adverse Reaction (Unknown, Uncoded 10/01/23 09:04) DIARRHEA/CRAMPS HPI HPI Comments History of Present Illness Details 57-year-old female patient returning for high risk breast evaluation. She has a previous history of atypical ductal hyperplasia of the right breast, s/p lumpectomy 2015 and a previous history of left breast atypical ductal hyperplasia, s/p lumpectomy in 2012. She was evaluated by Dr. Arambula and started on tamoxifen for 5 years however this was stopped due to the side effects. He was placed on a high risk breast cancer screening protocol including yearly mammogram and breast MRI and twice yearly physical examination. Her Tyrer-Cuzick lifetime remaining risk of breast cancer was determined to be 37.9%, well above the 20% threshold. Her most recent mammogram dated 04/19/2022 revealed no suspicious findings (BI-RADS 1). Her most recent MRI of 12/07/2022 revealed suspicious finding in the left breast and benign findings in the right breast (BI-RADS 4 left breast). She subsequently underwent MR guided core biopsy on 12/27/2022 which revealed benign breast tissue without atypia or malignancy. Mammogram dated 04/25/2023 revealed no mammographic evidence of malignancy (BI-RADS 2). Follow-up breast MRIs recommended in November 2023. She feels well and denies any ongoing breast symptoms at this time. [facility] Medical History Toe pain, left Abnormal MRI, breast Annual physical exam Viral illness Dermatitis of lip Plantar fasciitis, left Sciatic leg pain Right wrist pain Finger pain At high risk for breast cancer Myalgia Optic neuropathy, right Closed right ankle fracture Anorexia nervosa Tobacco abuse Vitamin D deficiency Pulmonary nodule Elevated amylase Surgical History History of surgery on wrist Distal radius fracture, left History of ankle surgery History of lumpectomy of both breasts Hx of knee surgery History of esophagogastroduodenoscopy (EGD) Family History Father HTN (hypertension) Hx of heart surgery Cancer History of cataract surgery Prostate CA Lymphoma Skin cancer Mother Breast cancer Cancer Sister Schizophrenia Mental health disorder Paternal Grandmother Breast cancer Hx of heart surgery Maternal Grandmother Pancreatic cancer Social History Housing: House Alcohol intake: never Patient Tobacco Use Status: Current everyday Tobacco user Tobacco use type: Cigarette Cigarettes Per Day: 4 Years Smoked: not ready to stop 08/2023 e-Cigarette/Vaping Use: Never Used Second Hand Smoke Exposure: Yes service: No Current occupational status: employed Cognitive needs: No Hearing needs: No Vision needs: No Female Reproductive History Menstrual Age of Menarche: 13 Review of Systems Const All systems reviewed & are unremarkable except as noted in HPI and below Physical Exam Vital Signs: Last Vital Signs BP 110/70 10/01/23 09:03 BMI result Body Mass Index 21.1 Const Nutritional Appearance: well nourished Limitations: no limitations Chest Other: Left breast:? No skin change, no nipple retraction, no nipple discharge, no palpable mass, no enlarged lymph nodes. Right breast:? No skin change, no nipple retraction, no nipple discharge, no palpable mass, no enlarged lymph nodes Resp Effort & Inspection: normal respiratory effort, no audible wheezes, no cough and no respiratory distress GI Inspection: Yes normal to inspection Skin General skin exam: no rashes or lesions noted Neuro Cognition (Neuro): normal cognition Extrem General: Yes no clubbing, cyanosis or edema Assessment & Plan Assessment & Plan (1) Atypical ductal hyperplasia of breast, bilateral: Code(s): N60.91 - Unspecified benign mammary dysplasia of right breast; N60.92 - Unspecified benign mammary dysplasia of left breast (2) At high risk for breast cancer: Code(s): Z91.89 - Other specified personal risk factors, not elsewhere classified Plan 57-year-old female patient returning today for high risk breast examination. She was diagnosed with atypical ductal hyperplasia in the left breast in 2012 and the right breast in 2015 and subsequently underwent bilateral lumpectomies. [facility] of [facility] was calculated at 37 % placing her at high risk for breast cancer. Examination today revealed no suspicious findings in either breast. She is due for her follow-up MRI in November 2023 and mammogram in April 2024. I have asked her to return in 6 months for follow-up breast examination. She is welcome to call sooner for any new concerns. Orders: Orders MR breast BI wo/w con 12/09/23 N60.91 - Unspecified benign mammary dysplasia of right breast, N60.92 - Unspecified benign mammary dysplasia of left breast, Z91.89 - Other specified personal risk factors, not elsewhere classified Coding Level of Care Code Est Pt Level 3 (59356) Diagnoses Atypical ductal hyperplasia of breast, bilateral N60.91; N60.92 At high risk for breast cancer Z91.89
[2023-10-01 09:03] VITALS: BP 110/70; BMI 21.1
== END 2023-10-01 09:11 | disposition home or self-care (01) ==
PROVIDERS: PCP Internal Medicine; Visit Provider Surgery
DX: N60.91 Unspecified benign mammary dysplasia of right breast (principal); N60.92 Unspecified benign mammary dysplasia of left breast; Z85.3 Personal history of malignant neoplasm of breast
CPT/HCPCS: 99213

== ENCOUNTER → 2023-10-01 08:55 | Outpatient (BNVA) | payer OTHER, SELFPAY | PROVIDERS: PCP Internal Medicine; Visit Provider Surgery | DX: N60.91 Unspecified benign mammary dysplasia of right breast (principal); N60.92 Unspecified benign mammary dysplasia of left breast; Z91.89 Other specified personal risk factors, not elsewhere classified ==

== ENCOUNTER 2024-05-06 11:30 | Outpatient (REF) | payer OTHER, SELFPAY ==
--- NOTE | ~2024-05-06 | MM_ITS ---
EXAMINATION: MM SCREENING DIGITAL BREAST TOMOSYNTHESIS, BILATERAL CLINICAL INFORMATION: Screening. Asymptomatic. COMPARISON: Mammography: Comparison is made with available priors TECHNIQUE: Digital breast mammography with tomosynthesis is performed in both the craniocaudal and mediolateral oblique views along with computer-aided detection (CAD). FINDINGS: The breasts are heterogeneously dense, which may obscure small masses (ACR BI-RADS breast composition Category c). Bilateral excisional biopsies for atypia. There are no significant masses, abnormal calcifications, or other abnormalities. MM/MM tomosynthesis screening BI IMPRESSION: No mammographic evidence of malignancy. ASSESSMENT: BI-RADS BI-RADS 2 - Benign Findings RECOMMENDATION: Routine annual mammography screening. 1 year F/U This examination should not preclude the clinical evaluation of a suspicious palpable abnormality. This patient's information was entered into a reminder system with a target due date for their next mammogram. Electronically signed by: Laura Reyes DO 05/13/2024 03:48 PM EDT
== END 2024-05-06 11:31 | disposition home or self-care (01) ==
LOC: HO.MAMMO 11:30
PROVIDERS: PCP Internal Medicine; Visit Provider Internal Medicine
DX: Z12.31 Encounter for screening mammogram for malignant neoplasm of breast (principal)
CPT/HCPCS: 77063; 77067

== ENCOUNTER → 2024-05-06 11:45 | Outpatient (BNV) | payer OTHER, SELFPAY | PROVIDERS: PCP Internal Medicine; Visit Provider Internal Medicine | DX: Z12.31 Encounter for screening mammogram for malignant neoplasm of breast (principal) | CPT/HCPCS: 77063; 77067 ==

== ENCOUNTER 2024-05-14 09:46 | Outpatient (AMB) | payer OTHER, SELFPAY ==
--- NOTE | 2024-05-14 09:59 | MHC.OFFVIS ---
Vital Signs 05/14/24 10:01 Height 5 ft 4 in Weight 120 lb BMI 20.6 BP 131/74 Blood Pressure Location Lt brachial Position Sitting Pulse 56 Intake Visit Reasons: 6 month follow up, breast exam Intake Note: Patient is seen in office for 6 month follow up visit, breast exam. Patient c/o: denies any concerns regarding the breast, has MRI sched for 05/21/24 MRI: DUE 12/2023 mm: 05/06/24 Respiratory Care Practitioner Required: No Accompanied by: Self / Same As Patient Allergies bee pollen Allergy (Mild, Verified 05/14/24 10:00) swelling mold Allergy (Mild, Verified 05/14/24 10:00) swollen eyes, sneezing PEPPERS Adverse Reaction (Unknown, Uncoded 05/14/24 10:00) DIARRHEA/CRAMPS Medication List - Last Reconciled 05/14/24 by Korey Barrios MD amlodipine 10 mg PO DAILY 90 days HPI Comments Details: 58-year-old female patient returning for high risk breast evaluation. She has a previous history of atypical ductal hyperplasia of the right breast, s/p lumpectomy 2015 and a previous history of left breast atypical ductal hyperplasia, s/p lumpectomy in 2012. She was evaluated by Dr. Arambula and started on tamoxifen for 5 years however this was stopped due to the side effects. He was placed on a high risk breast cancer screening protocol including yearly mammogram and breast MRI and twice yearly physical examination. [facility] remaining risk of [facility] cancer was determined to be 37.9%, well above the 20% threshold. Her most recent mammogram dated 04/19/2022 revealed no suspicious findings (BI-RADS 1). Her most recent MRI of 12/07/2022 revealed suspicious finding in the left breast and benign findings in the right breast (BI-RADS 4 left breast). She subsequently underwent MR guided core biopsy on 12/27/2022 which revealed benign breast tissue without atypia or malignancy. A follow-up breast MRI scheduled for 05/21/2024. Mammogram dated 05/06/2024 revealed no mammographic evidence of malignancy (BI-RADS 2). A follow-up mammogram is scheduled for 05/12/2025. She feels well and denies any ongoing breast symptoms at this time. [facility] Medical History Toe pain, left Abnormal MRI, breast Annual physical exam Viral illness Dermatitis of lip Plantar fasciitis, left Sciatic leg pain Right wrist pain Finger pain At high risk for breast cancer Myalgia Optic neuropathy, right Closed right ankle fracture Anorexia nervosa Tobacco abuse Vitamin D deficiency Pulmonary nodule Elevated amylase Surgical History History of surgery on wrist Distal radius fracture, left History of ankle surgery History of lumpectomy of both breasts Hx of knee surgery History of esophagogastroduodenoscopy (EGD) Family History Father HTN (hypertension) Hx of heart surgery Cancer History of cataract surgery Prostate CA Lymphoma Skin cancer Mother Breast cancer Cancer Sister Schizophrenia Mental health disorder Paternal Grandmother Breast cancer Hx of heart surgery Maternal Grandmother Pancreatic cancer Social History Housing: House Alcohol intake: never Patient Tobacco Use Status: Current everyday Tobacco user Tobacco use type: Cigarette Cigarettes Per Day: 4 Years Smoked: not ready to stop 08/2023 e-Cigarette/Vaping Use: Never Used Second Hand Smoke Exposure: Yes service: No Current occupational status: employed Cognitive needs: No Hearing needs: No Vision needs: No Female Reproductive History Menstrual Age of Menarche: 13 Review of Systems Const All systems reviewed & are unremarkable except as noted in HPI and below Physical Exam Vital Signs: Last Vital Signs Pulse 56 05/14/24 10:01 BP 131/74 05/14/24 10:01 BMI result Body Mass Index 20.6 Const Nutritional Appearance: well nourished Limitations: no limitations Chest Other: Left breast:? No skin change, no nipple retraction, no nipple discharge, no palpable mass, no enlarged lymph nodes. Right breast:? No skin change, no nipple retraction, no nipple discharge, no palpable mass, no enlarged lymph nodes Resp Effort & Inspection: normal respiratory effort, no audible wheezes, no cough and no respiratory distress GI Inspection: Yes normal to inspection Skin General skin exam: no rashes or lesions noted Neuro Other: Mobility Assessment: 1. 3 meter assessment time (seconds): 4 2. Gait observations: Normal balance and gait Cognition (Neuro): normal cognition Extrem General: Yes no clubbing, cyanosis or edema Assessment & Plan Assessment & Plan (1) Atypical ductal hyperplasia of breast, bilateral: Code(s): N60.91 - Unspecified benign mammary dysplasia of right breast; N60.92 - Unspecified benign mammary dysplasia of left breast Category: Medical (2) At high risk for breast cancer: Code(s): Z91.89 - Other specified personal risk factors, not elsewhere classified Category: Medical Plan 58-year-old female patient returning today for high risk breast examination. She was diagnosed with atypical ductal hyperplasia in the left breast in 2012 and the right breast in 2015 and subsequently underwent bilateral lumpectomies. Her Tyrer-Cuzick remaining lifetime risk of breast cancer was calculated at 37 % placing her at high risk for breast cancer. Examination today revealed no suspicious findings in either breast. She is scheduled for a follow-up breast MRI on 05/21/2024 and follow-up mammogram on 05/12/2025. I recommended follow-up examination in 6 months. She is welcome to call sooner for any new concerns. Coding Level of Care Code Est Pt Level 3 (47810) Complex EM visit Add On G2211 Diagnoses Atypical ductal hyperplasia of breast, bilateral N60.91; N60.92 At high risk for breast cancer Z91.89
[2024-05-14 10:01] VITALS: BP 131/74; PULSE 56; BMI 20.6
== END 2024-05-14 10:15 | disposition home or self-care (01) ==
LOC: HO.HGS 09:47
PROVIDERS: PCP Internal Medicine; Visit Provider Surgery
DX: N60.91 Unspecified benign mammary dysplasia of right breast (principal); N60.92 Unspecified benign mammary dysplasia of left breast; Z91.89 Other specified personal risk factors, not elsewhere classified
CPT/HCPCS: 99213

== ENCOUNTER → 2024-05-14 09:46 | Outpatient (BNVA) | payer OTHER, SELFPAY | PROVIDERS: PCP Internal Medicine; Visit Provider Surgery ==

== ENCOUNTER → 2024-06-04 13:02 | Outpatient (BNV) | payer OTHER, SELFPAY | PROVIDERS: PCP Internal Medicine; Visit Provider Internal Medicine | DX: N60.91 Unspecified benign mammary dysplasia of right breast (principal); N60.92 Unspecified benign mammary dysplasia of left breast | CPT/HCPCS: 77049 ==

== ENCOUNTER 2024-06-04 13:06 | Outpatient (REF) | payer OTHER, SELFPAY ==
[2024-06-04] MEDS: gadobutroL 7.5 ML VIAL IVPUSH (14:18)
== END 2024-06-04 13:07 | disposition home or self-care (01) ==
LOC: HO.MRI 13:06
PROVIDERS: PCP Internal Medicine; Visit Provider Surgery
DX: N60.91 Unspecified benign mammary dysplasia of right breast (principal); N60.92 Unspecified benign mammary dysplasia of left breast; Z91.89 Other specified personal risk factors, not elsewhere classified
CPT/HCPCS: 77049; A9585

== ENCOUNTER 2024-06-18 14:45 | Outpatient (AMB) | payer OTHER, SELFPAY ==
--- NOTE | 2024-06-18 14:48 | MHC.OFFVIS ---
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 She is doing well with no concerns. Seeing Dermatology for dry lips and mouth. 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 She also is concerned she has a dry spot near her upper buttocks crease. Currently sexually active. Denies any vaginal dryness or irritation. STI testing offered; she declined. Attempting to eat a healthy diet with calcium and vitamin D and stays active with exercise. Last pap smear; 2018, negative. Last mammogram; 2023. MRI results are pending. Colonoscopy is not UTD. Denies any family history of ovarian or colon cancer. FH breast cancer-mother. [facility] Medical History Toe pain, left Abnormal MRI, breast Annual physical exam Viral illness Dermatitis of lip Plantar fasciitis, left Sciatic leg pain Right wrist pain Finger pain At high risk for breast cancer Myalgia Optic neuropathy, right Closed right ankle fracture Anorexia nervosa Tobacco abuse Vitamin D deficiency Pulmonary nodule Elevated amylase Surgical History History of surgery on wrist Distal radius fracture, left History of ankle surgery History of lumpectomy of both breasts Hx of knee surgery History of esophagogastroduodenoscopy (EGD) Family History Father HTN (hypertension) Hx of heart surgery Cancer History of cataract surgery Prostate CA Lymphoma Skin cancer Mother Breast cancer Cancer Sister Schizophrenia Mental health disorder Paternal Grandmother Breast cancer Hx of heart surgery Maternal Grandmother Pancreatic cancer Social History (Updated 06/18/24 @ 14:56 by Nadine M Mendrala, RMA) Housing: House Alcohol intake: never Patient Tobacco Use Status: Current everyday Tobacco user Tobacco use type: Cigarette Cigarettes Per Day: 4 Years Smoked: not ready to stop 08/2023 e-Cigarette/Vaping Use: Never Used Second Hand Smoke Exposure: Yes service: No Current occupational status: employed Sexually active: Yes Sexual orientation: Straight/Heterosexual Gender identity: Female Cognitive needs: No Hearing needs: No Vision needs: No Female Reproductive History Menstrual Age of Menarche: 13 Menopause type: natural Total pregnancies: 3 Number of Living Children: 0 Date of last pap smear: 05/12/19 (neg pap and hpv) Date of Mammogram: 05/06/24 (Birad 2) Review of Systems Const All systems reviewed & are unremarkable except as noted in HPI and below Reports as per HPI Eyes Reports no additional complaints ENT Reports no additional complaints Card Reports no additional complaints Resp Reports no additional complaints GI Reports as per HPI and Reports no additional complaints Reports as per HPI Musc Reports no additional complaints Skin/Breast Reports as per HPI Neuro Reports no additional complaints Psych Reports no additional complaints Endo Reports no additional complaints Jayce/Lymph Reports no additional complaints Aller/Immun Reports no additional complaints Physical Exam Vital Signs: Last Vital Signs BP 118/72 06/18/24 14:50 BMI result Body Mass Index 20.9 Const General: cooperative, healthy appearing, no acute distress, well developed and alert Orientation/consciousness: patient oriented x3 HEENT Head: Yes normal to inspection Eyes General: appearance normal, both eyes and all related structures Neck Neck: Yes normal visual inspection Thyroid: Thyroid normal Chest Chest palpation & inspection: normal inspection of the chest and other (no puckering, dimpling, peau de orange, retraction, discharge, masses) Breast/axilla inspection: normal inspection of the breasts Breast/axilla palpation: normal palpation of the breasts Resp Effort & Inspection: normal respiratory effort GI Inspection: Yes normal to inspection Palpation (GI): Soft to palpation Rectal Exam - Female: deferred General: Yes bladder normal to palpation External Female Exam: normal external appearance and normal appearance of the urethra Speculum Exam - Vagina: normal appearance of the vagina, normal palpation, normal vaginal discharge, vagina atrophic and no masses Speculum Exam - Cervix: normal appearance of the cervix, normal palpation and Other cervical findings present (Positioned to the left) Bimanual exam- vagina & uterus: normal bimanual exam, normal palpation, uterine size normal, bladder normal to palpation, normal palpation and non-tender Bimanual Exam- Adnexa, other: no masses Skin Other: Dry patch upper buttocks crease bilateral with mirror imaging slight pink tint to skin General skin exam: no rashes or lesions noted Rashes: no rashes Neuro General: patient oriented x3 Cognition (Neuro): normal cognition Extrem General: Yes normal to inspection Psych Attitude: cooperative Thought process: Normal thought process present Assessment & Plan Assessment & Plan (1) Encounter for well woman exam with routine gynecological exam: Code(s): Z01.419 - Encounter for gynecological examination (general) (routine) without abnormal findings Category: Medical Plan Discussed: Current recommendations for pap smears per ASCCP guidelines. Breast awareness, periodic self breast exams and yearly mammogram. Maintain a healthy lifestyle, well balanced diet including Calcium 1,200 mg and Vitamin D 600 IU daily, and routine exercise. Contact the office with any postmenopausal bleeding. Skin care, use of emollient creams. Patient verbalizes understanding and agrees to the plan of care. She was given opportunity to ask questions and all questions were answered to the best of my ability. 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 This note is constructed using voice recognition software. While every effort has been made to ensure accuracy, sheet metal apprentice errors may have been included. Coding Level of Care Code New Pt Prev Care 40-64y(73177) Diagnoses Encounter for well woman exam with routine gynecological exam Z01.419
[2024-06-18 14:50] VITALS: BP 118/72; BMI 20.9
== END 2024-06-18 15:34 | disposition home or self-care (01) ==
LOC: HO.HWS 14:45
PROVIDERS: PCP Internal Medicine; Visit Provider Advanced Practice Midwife
DX: Z01.419 Encounter for gynecological examination (general) (routine) without abnormal findings (principal)
CPT/HCPCS: 99386

== ENCOUNTER 2024-06-18 14:45 | Outpatient (REF) | payer OTHER, SELFPAY ==
[2024-06-19 14:27] LABS: HPV 16,18/45 See PAP report
== END 2024-06-18 14:46 | disposition home or self-care (01) ==
LOC: HO.LNP 14:45
PROVIDERS: PCP Internal Medicine; Visit Provider Advanced Practice Midwife
DX: Z01.419 Encounter for gynecological examination (general) (routine) without abnormal findings (principal)
CPT/HCPCS: 87624; 88175

== ENCOUNTER 2024-12-01 11:05 | Outpatient (AMB) | payer OTHER, SELFPAY ==
[2024-12-01 11:07] VITALS: BP 120/62; PULSE 77; O2SAT 97; BMI 20.6
--- NOTE | 2024-12-01 11:07 | MHC.PC.OV ---
Vital Signs 12/01/24 11:07 Height 5 ft 4 in Weight 120 lb BMI 20.6 BP 120/62 Blood Pressure Location Lt brachial Position Sitting Pulse 77 Pulse Source Pulse Oximeter Pulse Oximetry (%) 97 Oxygen Delivery Method Room Air Intake Visit Reasons: Annual PE Allergies bee pollen Allergy (Mild, Verified 12/01/24 11:07) swelling mold Allergy (Mild, Verified 12/01/24 11:07) swollen eyes, sneezing PEPPERS Adverse Reaction (Unknown, Uncoded 12/01/24 11:07) DIARRHEA/CRAMPS Medication List - Last Reconciled 12/01/24 by Kev Rodarte MD amlodipine 10 mg PO DAILY 90 days multivitamin 1 tab PO DAILY Tobacco use date assessed: 12/01/24 Dental Screening Dental Screen Date: 12/01/24 Did you have a dental visit in the last 12 months?: Yes Did you have a dental problem in the last 6 months where you did not have access to dental care?: No Was dental information given to patient?: Patient has dentist [facility] Medical History Toe pain, left Abnormal MRI, breast Annual physical exam Viral illness Dermatitis of lip Plantar fasciitis, left Sciatic leg pain Right wrist pain Finger pain At high risk for breast cancer Myalgia Optic neuropathy, right Closed right ankle fracture Anorexia nervosa Tobacco abuse Vitamin D deficiency Pulmonary nodule Elevated amylase Surgical History History of surgery on wrist Distal radius fracture, left History of ankle surgery History of lumpectomy of both breasts Hx of knee surgery History of esophagogastroduodenoscopy (EGD) Family History (Updated 12/01/24 @ 11:31 by Kev Rodarte MD) Father HTN (hypertension) Hx of heart surgery Cancer History of cataract surgery Prostate CA Lymphoma Skin cancer Heart attack Mother Breast cancer Cancer Sister Schizophrenia Mental health disorder Paternal Grandmother Breast cancer Hx of heart surgery Maternal Grandmother Pancreatic cancer Social History (Updated 12/01/24 @ 11:34 by Kev Rodarte MD) Housing: House Alcohol intake: never Patient Tobacco Use Status: Current everyday Tobacco user Tobacco use type: Cigarette Cigarettes Per Day: 4 Years Smoked: not ready to stop 08/2023 e-Cigarette/Vaping Use: Never Used Second Hand Smoke Exposure: Yes service: No Current occupational status: employed Sexual orientation: Straight/Heterosexual Gender identity: Female Cognitive needs: No Hearing needs: No Vision needs: Yes Female Reproductive History Menstrual Age of Menarche: 13 Questionnaire PHQ-9 Over the last 2 weeks, how often have you been bothered by any of the following problems? 1. Little interest or pleasure in doing things: not at all 2. Feeling down, depressed, or hopeless: not at all 3. Trouble falling or staying asleep, or sleeping too much: several days 4. Feeling tired or having little energy: several days 5. Poor appetite or overeating: not at all 6. Feeling bad about yourself - or that you are a failure or have let yourself or your family down: not at all 7. Trouble concentrating on things, such as reading the newspaper or watching television: not at all 8. Moving or speaking so slowly that other people could have noticed. Or the opposite - being so fidgety or restless that you have been moving around a lot more than usual: not at all 9. Thoughts that you would be better off or of hurting yourself in some way: not at all Total score: 2 Depression Screening Interpretation: Positive Depression Screening Done: Yes 09582 - PHQ-9 Billing: Yes Source: Developed by Drs. Pardeep Washburn, Porsche Zheng, Harsh Mcneil and colleagues, with an educational naina from [employer]. Thrive Questionnaire Date Thrive assessed: 12/01/24 I am a: Patient What is your living situation today?: I have a steady place to live Within the past 12 months, did the food you bought not last and you didn't have the money to get more?: Never true Within the past 12 months, did you worry whether your food would run out before you got money to buy more?: Never true Do you have trouble paying for medicines?: No Do you have trouble getting transportation to medical appointments?: No Do you have trouble paying your heating and electricity bill?: No Do you have trouble taking care of your child, family member or friend?: No Do you have trouble with day-to-day activities such as bathing, preparing meals, shopping, managing finances, etc.?: No Are you currently unemployed and looking for a job?: No Are you interested in more education?: No Please select the resources that you would like help with: None Currently or been in a relationship where the following occur: I choose not to answer THRIVE Score: 0 AUDIT C Alcohol Use Questionnaire (AUDIT-C) 1. How often do you have a drink containing alcohol?: Never Total Score: 0 KALEIGH-7 AMB Questionnaire KALEIGH-7 Date KALEIGH - 7 assessed: 12/01/24 Feeling nervous, anxious, or on edge: 0 = Not at all Not being able to stop or control worryin = Not at all Worrying too much about different things: 1 = Several days Trouble relaxin = Several days Being so restless that it is hard to sit still: 1 = Several days Becoming easily annoyed or irritable: 1 = Several days Feeling afraid as if something awful might happen: 0 = Not at all Total KALEIGH-7 score (0-4 normal; 5-9 mild; 10-14 moderate; 15-21 severe): 4 Source: Developed by Drs. Pardeep Washburn, Porsche Zheng, Harsh Mcneil and colleagues, with an educational naina from [employer]. KALEIGH-7 Assessment Billing KALEIGH-7 Assessment Tool: KALEIGH-7 Assessment 44097 Review of Systems Const Denies poor appetite and Denies weakness Eyes Denies no additional complaints ENT Reports Normal hearing present, Denies dizziness, Denies nasal congestion, Denies tinnitus and Denies sore throat Card Denies chest pain, Denies syncope, Denies rapid heart rate and Denies dyspnea Resp Denies cough and Denies dyspnea GI Denies change in stool character, Reports constipation, Denies diarrhea, Denies nausea and Denies vomiting Denies urinary frequency, Denies difficulty voiding and Denies dysuria Neuro Reports Normal hearing present, Denies confusion, Denies dizziness, Denies syncope and Denies weakness Psych Denies confusion Physical exam (Primary Care) Vital Signs: Last Vital Signs Pulse 77 12/01/24 11:07 BP 120/62 12/01/24 11:07 Pulse Ox 97 12/01/24 11:07 Oxygen Delivery Method Room Air 12/01/24 11:07 BMI result Body Mass Index 20.6 Tobacco/Smoking Status: Tobacco use Status Tobacco use date assessed 12/01/24 12/01/24 11:09 Patient Tobacco Use Status Current everyday Tobacco 12/01/24 11:09 Tobacco use type Cigarette 12/01/24 11:09 e-Cigarette/Vaping Use Never Used 12/01/24 11:09 PHQ-9: PHQ-9 Score PHQ-9: Total score 2 12/01/24 11:09 Depression Screening Interpretation: Positive Thrive Assessment: Date of Thrive Assessment Date Thrive assessed 12/01/24 12/01/24 11:09 Currently or been in a relationship where the following occur: I choose not to answer Const General: No confusion Orientation/consciousness: No confusion HENMT Head: Yes normocephalic Ears: external ears normal and TM's normal bilaterally Face and sinus: Yes normal facial exam Mouth: moist mucous membranes Throat: Yes tonsils normal Eyes Conjunctivae: conjunctivae normal Pupils: Equal, round and reactive pupils present and Pupil accommodation reflex normal Direct Ophthalmoscopy: normal light reflex Neck Neck: No lymphadenopathy Thyroid: Thyroid normal Chest Chest palpation & inspection: normal inspection of the chest Resp Effort & Inspection: normal respiratory effort and no audible wheezes Auscultation: clear to auscultation bilaterally, no crackles, no wheezes and lung sounds not diminished Cardio Rate: regular rate Rhythm: regular rhythm Peripheral pulses: radial pulses present and dorsalis pedis present GI Palpation (GI): no masses Auscultation: normal bowel sounds and normoactive bowel sounds Rectal Exam - Female: deferred Skin General skin exam: no rashes or lesions noted Rashes: no rashes Neuro General: No confusion Cranial nerves: Yes Equal, round and reactive pupils present and Yes Normal hearing present Cognition (Neuro): normal cognition Gait exam (Neuro): Normal gait present Motor exam (neuro): 5/5 motor strength present throughout Deep tendon reflexes (DTR's): Right brachioradialis reflex intensity grade: 2+, Left brachioradialis reflex intensity grade: 2+, Right patellar reflex intensity grade: 2+ and Left patellar reflex intensity grade: 2+ Extrem General: No edema Coding Level of Care Code Est Pt Prev Care 40-64y(64620) Diagnoses Annual physical exam Z00.00 Atypical ductal hyperplasia of breast, bilateral N60.91; N60.92 Osteopenia M85.80 Tobacco abuse Z72.0 Colon cancer screening Z12.11 Generalized anxiety disorder F41.1 Cheilitis K13.0 Additional Codes KALEIGH-7 Assessment Billing - KALEIGH-7 Assessment Tool: KALEIGH-7 Assessment 58054 ([id number]) PHQ-9 - 43483 - PHQ-9 Billing: Yes ([id number]) Assessment & Plan Assessment & Plan (1) Annual physical exam: Code(s): Z00.00 - Encounter for general adult medical examination without abnormal findings Category: Medical (2) Atypical ductal hyperplasia of breast, bilateral: Code(s): N60.91 - Unspecified benign mammary dysplasia of right breast; N60.92 - Unspecified benign mammary dysplasia of left breast Category: Medical (3) Osteopenia: Code(s): M85.80 - Other specified disorders of bone density and structure, unspecified site Category: Medical (4) Tobacco abuse: Code(s): Z72.0 - Tobacco use Category: Medical (5) Colon cancer screening: Code(s): Z12.11 - Encounter for screening for malignant neoplasm of colon Category: Medical (6) Generalized anxiety disorder: Comment: [facility] Code(s): F41.1 - Generalized anxiety disorder Category: Medical (7) Cheilitis: Code(s): K13.0 - Diseases of lips Category: Medical Plan History of Present Illness The patient is a 59-year-old female presenting for her annual physical examination and health maintenance. She has chronic conditions including osteopenia, smoking, atypical hyperplasia of the breasts, generalized anxiety disorder, and essential hypertension. Bone density diagnostics conducted in 2020 revealed osteopenia, and follow-up mammograms are scheduled. She has a noteworthy family history of cancer (breast, pancreatic, prostate) and cardiovascular conditions. The patient's metabolic insult has resulted in right optic neuropathy, and she manages her condition with one visit with minimal changes observed over the last decade. 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 Her dietary habits have her worried about meeting all nutritional needs despite mainly being vegetarian. Smoking cessation remains a challenge, and she acknowledges its stress-related aspects, hesitant to quit fully despite the offered interventions. Her cholesterol levels, checked in September 2022, showed an LDL level of 131 mg/dL. Finally, she seeks to review past treatments with bisphosphonates due to upcoming dental procedures. Health Maintenance - Bone density test recommended due to history of osteopenia, last done in March 2021 - Upcoming mammogram due April 2024 - Annual cholesterol check noted with LDL at 131 mg/dL in September 2022 - Smoking cessation assistance discussed; consideration of nicotine patch - Tetanus and pneumonia vaccinations up to date - Recommended check with insurance for shingles vaccination - Referral to senior client advisor for colonoscopy discussion and possible procedure - Promote increased physical activity and dietary assessment for optimal nutrition - Eye exams routinely for optic neuropathy due to metabolic insult history Social History - 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, recent transition to [place] - Non-user of alcohol, struggling with smoking cessation (3-4 cigarettes daily) - Vegetarian diet including fish, concerns over nutritional adequacy - Recent knee meniscus surgery; decreased physical activity - 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 Review of Systems - Constitutional: Denies fever or unintentional weight changes - Eyes: Reports vision loss in right eye due to optic neuropathy - Ears, Nose, Throat: Denies hearing issues; occasional need for others to speak louder - Respiratory: Denies shortness of breath or chronic cough - Cardiovascular: Denies chest pain; no recent palpitations reported - Gastrointestinal: Regular bowel movements reported; no reflux or dysphagia - Genitourinary: Denies urinary problems - Musculoskeletal: Reports past meniscus surgery; decreased running activity - Neurological: Denies headaches, dizziness, or syncope - Psychiatric: Reports anxiety disorder; stress-related smoking noted Physical Exam General: Cooperative, healthy appearing, comfortable, no acute distress and well developed Orientation: Patient oriented x3 Limitations: No limitations Head: Normal to inspection Ears: Hearing grossly normal bilaterally Nose: Normal external nose present Face and sinus: Normal facial exam Eyes: Appearance normal, both eyes and all related structures Neck: Normal visual inspection and Yes full ROM Respiratory: Normal respiratory effort and able to speak in complete sentences. Clear to auscultation bilaterally Cardiovascular: Regular rate and rhythm. Normal S1 and S2 GI: Normal to inspection. Soft to palpation and nontender Skin: No rashes or lesions noted Neuro: Patient oriented x3 Extremities: Normal to inspection Results - Labs: Cholesterol check September 2022, LDL 131 mg/dL - Tests: Bone density (2020) showed osteopenia; scheduled mammogram for April 2024 - Ophthalmic: Metabolic insult to optic nerve, stable vision loss right eye - Review of past bisphosphonate use needed Plan I will proceed with scheduling her bone density test to evaluate her osteopenia status and ensure mammograms remain on schedule for breast health monitoring. A low-dose nicotine patch has been advised to assist with smoking cessation. We discussed obtaining her shingles vaccine at a pharmacy if coverage permits and retrieval of historical bisphosphonate details for dental considerations. Emphasis on cardiovascular risk reduction through lifestyle changes was encouraged, and a gastroenterology referral for possible colonoscopy has been agreed upon for comprehensive cancer screening. Patient was informed and verbally consented to the use of an ambient scribe for clinic note documentation during this visit. Discussion Notes I discussed with the patient the significance of continuing her routine screening tests, including follow-up bone density and mammographic screening. We reviewed options for smoking cessation, with a focus on behavioral strategies alongside potential pharmacotherapy using nicotine patches, which she seems open to applying. Emphasized her LDL cholesterol monitoring for cardiovascular risk, recommending a healthy lifestyle that contemplates her vegetarian diet's adequacy. She has consented to pursue available vaccinations such as shingles as a preventive measure. Additionally, I outlined the importance of colonoscopy screening and addressed her inquiry regarding prior bisphosphonate treatments to support dental care planning. The patient is informed about seeking family cancer history details and integrating these insights into her health maintenance considerations. Patient Instructions - Schedule your bone density test and mammogram. - Start using the patch prescribed for quitting smoking. - Check with your pharmacy about the shingles vaccine. - Follow up with your insurance on shingles shot coverage. - Schedule your colonoscopy with the gastroenterology department. - Adopt lifestyle changes to lower cholesterol levels. - Consider increasing physical activity, following dietary recommendations. - Gather family medical history details for records. - Contact the practice for retrieval of past medication details if needed. - Take care to manage stress and avoid cigarette purchases completely. Orders: Orders Complete Blood Count Auto Diff Today I10 - Essential (primary) hypertension Comprehensive Met. Panel Today I10 - Essential (primary) hypertension Lipid Panel Today E78.00 - Pure hypercholesterolemia, unspecified, I10 - Essential (primary) hypertension Vitamin B12 and Folate Today I10 - Essential (primary) hypertension Ferritin Today I10 - Essential (primary) hypertension Erythrocyte Sedimentation Rate Today I10 - Essential (primary) hypertension XR DEXA axial skeleton Today M81.0 - Age-related osteoporosis without current pathological fracture, M85.80 - Other specified disorders of bone density and structure, unspecified site ECG 12 lead EKG Today I10 - Essential (primary) hypertension Free T4 (Free Thyroxine) Today I10 - Essential (primary) hypertension Thyroid Stimulating Hormone Today I10 - Essential (primary) hypertension Vitamin D 25-OH Total Today I10 - Essential (primary) hypertension Reticulocyte Count Today I10 - Essential (primary) hypertension IRON PROFILE Today I10 - Essential (primary) hypertension Magnesium Today I10 - Essential (primary) hypertension C Reactive Protein Today I10 - Essential (primary) hypertension Vitamin B1 Today I10 - Essential (primary) hypertension Referrals Gastroenterology Referral Z12.11 - Encounter for screening for malignant neoplasm of colon Medications: New tacrolimus 0.1% 1 appl topical BID 60 grams 0RF K13.0 - Diseases of lips nicotine 1 patch transdermal DAILY 28 ea 2RF Z72.0 - Tobacco use
--- OUTSIDE RECORDS SUMMARY | 2024-12-01 12:23 | XMS_ITS | Clinical Summary ---
Author Organization [facility] Address [address] [place] [address] Phone Care Team Providers Care Account Contact Associate Name Role Phone Kev Rodarte MD Primary Care Provider [phone] Allergies No known active allergies Medications amLODIPine (NORVASC) 2.5 MG tablet Take 1 tablet by mouth 1 (one) time each day Active amLODIPine (NORVASC) 10 MG tablet 09/06/2020 Active chlorhexidine (PERIDEX) 0.12 % solution 15 mL twice a day 06/12/2019 Active nicotine (NICODERM CQ) 7 MG/24HR 12/14/2020 Active amoxicillin (AMOXIL) 875 MG tablet 12/15/2020 Active Active Problems Problem Noted Date Diagnosed Date Hypertensive disorder 09/09/2020 Family History Medical History Relation Comments Cancer Father prostate Heart disease Father Hypertension Father Cancer Mother breast Relation Status Comments Father Alive Mother Unknown Social History Tobacco Use Types Packs/Day Years Used Date Smoking Tobacco: Every Day Cigarettes Alcohol Use Standard Drinks/Week Comments Yes 0 (1 standard drink = 0.6 oz pure alcohol) Alcoholic Drinks/day: Occasional social drink Comments Unknown Sex and Gender Information Value Date Recorded Sex Assigned at Not on file Legal Sex Female 4:56 PM EST Gender Identity Not on file Sexual Orientation Not on file Last Filed Vital Signs Vital Sign Reading Time Taken Comments Blood Pressure 110/80 12/23/2020 3:38 PM EDT Pulse 61 12/23/2020 3:38 PM EDT Temperature - - Respiratory Rate - - Oxygen Saturation 99% 12/23/2020 3:38 PM EDT Inhaled Oxygen Concentration - - Weight 57.6 kg (127 lb) 12/23/2020 3:38 PM EDT Height - - Body Mass Index - - Plan of Treatment Health Maintenance Due Date Last Done Comments Breast Cancer Screening 1965 Hepatitis B Vaccine (1 of 3 - 19+ 3-dose series) 11/13 Pneumococcal Vaccine: 50+ Years (1 of 2 - PCV) 986 Colorectal Cancer Screening: Annual FOBT 11/14/2015 Colorectal Cancer Screening: Colonoscopy 11/14/2015 Colorectal Cancer Screening: Sigmoidoscopy 11/14/2015 Influenza Vaccine (Season Ended) 2025 Insurance [facility] Care Teams Account Contact Associate Relationship Specialty Start Date End Date Kev Rodarte MD [facility] [id number] [place], [place] PCP - General 07/25/20
== END 2024-12-01 11:56 | disposition home or self-care (01) ==
LOC: HO.HMCH 11:05
PROVIDERS: PCP Internal Medicine; Visit Provider Internal Medicine
DX: Z00.00 Encounter for general adult medical examination without abnormal findings (principal); N60.91 Unspecified benign mammary dysplasia of right breast; N60.92 Unspecified benign mammary dysplasia of left breast; M85.80 Other specified disorders of bone density and structure, unspecified site; Z72.0 Tobacco use; Z12.11 Encounter for screening for malignant neoplasm of colon; F41.1 Generalized anxiety disorder; K13.0 Diseases of lips

== ENCOUNTER → 2024-12-01 11:05 | Outpatient (BNVA) | payer OTHER, SELFPAY | PROVIDERS: PCP Internal Medicine; Visit Provider Internal Medicine | DX: Z00.00 Encounter for general adult medical examination without abnormal findings (principal); N60.91 Unspecified benign mammary dysplasia of right breast; N60.92 Unspecified benign mammary dysplasia of left breast; M85.80 Other specified disorders of bone density and structure, unspecified site; K13.0 Diseases of lips; F17.210 Nicotine dependence, cigarettes, uncomplicated | CPT/HCPCS: 96127 ==

== ENCOUNTER 2025-01-08 10:56 | Outpatient (AMB) | payer OTHER, SELFPAY ==
--- NOTE | 2025-01-08 11:02 | MHC.OFFVIS ---
Vital Signs 01/08/25 11:11 Height 5 ft 4 in Weight 120 lb BMI 20.6 BP 136/75 Blood Pressure Location Lt brachial Position Sitting Pulse 50 Intake Visit Reasons: 6 month breast exam Intake Note: Patient is seen in office for 6 month follow up visit, breast exam. Patient c/o: denies any concerns MRI: 06/04/24 mm: 05/06/24 Outside Operator Required: No Technical Agronomist: Technical Agronomist Present Accompanied by: Self / Same As Patient Allergies bee pollen Allergy (Mild, Verified 01/08/25 11:11) swelling mold Allergy (Mild, Verified 01/08/25 11:11) swollen eyes, sneezing PEPPERS Adverse Reaction (Unknown, Uncoded 01/08/25 11:11) DIARRHEA/CRAMPS Medication List - Last Reconciled 01/11/25 by Korey Barrios MD amlodipine 10 mg PO DAILY 90 days multivitamin 1 tab PO DAILY nicotine 1 patch transdermal DAILY tacrolimus 0.1% 1 appl topical BID HPI Comments Details: 59-year-old female patient returning for high risk breast evaluation. She has a previous history of atypical ductal hyperplasia of the right breast, s/p lumpectomy 2015 and a previous history of left breast atypical ductal hyperplasia, s/p lumpectomy in 2012. She was evaluated by Dr. Arambula and started on tamoxifen for 5 years however this was stopped due to the side effects. He was placed on a high risk breast cancer screening protocol including yearly mammogram and breast MRI and twice yearly physical examination. Her Tyrer-Cuzick lifetime remaining risk of breast cancer was determined to be 37.9%, well above the 20% threshold. Her most recent mammogram dated 04/19/2022 revealed no suspicious findings (BI-RADS 1). Her most recent MRI of 12/07/2022 revealed suspicious finding in the left breast and benign findings in the right breast (BI-RADS 4 left breast). She subsequently underwent MR guided core biopsy on 12/27/2022 which revealed benign breast tissue without atypia or malignancy. A follow-up breast MRI performed on 06/04/2024 revealed no MR specific evidence of malignancy (BI-RADS 2 bilaterally). Mammogram dated 05/06/2024 revealed no mammographic evidence of malignancy (BI-RADS 2). A follow-up mammogram is scheduled for 05/12/2025. She feels well and denies any ongoing breast symptoms at this time. [facility], [facility] Medical History Toe pain, left Abnormal MRI, breast Annual physical exam Viral illness Dermatitis of lip Plantar fasciitis, left Sciatic leg pain Right wrist pain Finger pain At high risk for breast cancer Myalgia Optic neuropathy, right Closed right ankle fracture Anorexia nervosa Tobacco abuse Vitamin D deficiency Pulmonary nodule Elevated amylase Surgical History History of surgery on wrist Distal radius fracture, left History of ankle surgery History of lumpectomy of both breasts Hx of knee surgery History of esophagogastroduodenoscopy (EGD) Family History Father HTN (hypertension) Hx of heart surgery Cancer History of cataract surgery Prostate CA Lymphoma Skin cancer Heart attack Mother Breast cancer Cancer Sister Schizophrenia Mental health disorder Paternal Grandmother Breast cancer Hx of heart surgery Maternal Grandmother Pancreatic cancer Social History Housing: House Alcohol intake: never Patient Tobacco Use Status: Current everyday Tobacco user Tobacco use type: Cigarette Cigarettes Per Day: 4 Years Smoked: not ready to stop 08/2023 e-Cigarette/Vaping Use: Never Used Second Hand Smoke Exposure: Yes service: No Current occupational status: employed Sexual orientation: Straight/Heterosexual Gender identity: Female Cognitive needs: No Hearing needs: No Vision needs: Yes Female Reproductive History Menstrual Age of Menarche: 13 Review of Systems Const All systems reviewed & are unremarkable except as noted in HPI and below Physical Exam Vital Signs: Last Vital Signs Pulse 50 01/08/25 11:11 BP 136/75 01/08/25 11:11 BMI result Body Mass Index 20.6 Const Nutritional Appearance: well nourished Limitations: no limitations Chest Other: Left breast:? No skin change, no nipple retraction, no nipple discharge, no palpable mass, no enlarged lymph nodes. Right breast:? No skin change, no nipple retraction, no nipple discharge, no palpable mass, no enlarged lymph nodes Chest/axillae images:  1. 2. Resp Effort & Inspection: normal respiratory effort, no audible wheezes, no cough and no respiratory distress GI Inspection: Yes normal to inspection Skin General skin exam: no rashes or lesions noted Neuro Other: Mobility Assessment: 1. 3 meter assessment time (seconds): 4 2. Gait observations: Normal balance and gait Cognition (Neuro): normal cognition Extrem General: Yes no clubbing, cyanosis or edema Assessment & Plan Assessment & Plan (1) Atypical ductal hyperplasia of breast, bilateral: Code(s): N60.91 - Unspecified benign mammary dysplasia of right breast; N60.92 - Unspecified benign mammary dysplasia of left breast Category: Medical (2) At high risk for breast cancer: Code(s): Z91.89 - Other specified personal risk factors, not elsewhere classified Category: Medical Plan 59-year-old female patient returning today for high risk breast examination. She was diagnosed with atypical ductal hyperplasia in the left breast in 2012 and the right breast in 2015 and subsequently underwent bilateral lumpectomies. [facility] remaining lifetime risk of breast cancer was calculated at 37 % placing her at high risk for breast cancer. Examination today revealed no suspicious findings in either breast. Breast MRI performed on 06/04/2024 revealed no MR specific evidence of malignancy (BI-RADS 2 bilaterally). Mammogram performed on 05/06/2024 also revealed no mammographic evidence of malignancy (BI-RADS 2). Examination today revealed no suspicious findings in either breast with no enlarged lymph nodes. I recommended follow-up examination in 6 months. She will be scheduled for a mammogram in April of 2025 and MRI of the breasts approximately 6 months following this. Orders: Orders MR breast BI wo/w con 10/13/25 N60.91 - Unspecified benign mammary dysplasia of right breast, N60.92 - Unspecified benign mammary dysplasia of left breast, Z91.89 - Other specified personal risk factors, not elsewhere classified Coding Level of Care Code Est Pt Level 3 (21897) Complex EM visit Add On G2211 Diagnoses Atypical ductal hyperplasia of breast, bilateral N60.91; N60.92 At high risk for breast cancer Z91.89
[2025-01-08 11:11] VITALS: BP 136/75; PULSE 50; BMI 20.6
--- OUTSIDE RECORDS SUMMARY | 2025-01-08 12:06 | XMS_ITS | Clinical Summary ---
Author Organization [facility] Address [address] [place] [address] Phone Care Team Providers Care Letter Of Credit Clerk Name Role Phone Kev Rodarte MD Primary Care Provider [phone] Allergies No known active allergies Medications amLODIPine [...] 11/14/2015 Influenza Vaccine (Season Ended) 2025 Insurance [facility] Care Teams Letter Of Credit Clerk Relationship Specialty Start Date End Date Kev Rodarte MD [facility] [address] [place], [place] PCP - General 07/25/20
== END 2025-01-08 11:23 | disposition home or self-care (01) ==
LOC: HO.HGS 10:57
PROVIDERS: PCP Internal Medicine; Visit Provider Surgery
DX: N60.91 Unspecified benign mammary dysplasia of right breast (principal); N60.92 Unspecified benign mammary dysplasia of left breast; Z91.89 Other specified personal risk factors, not elsewhere classified
CPT/HCPCS: 99213; G2211

== ENCOUNTER 2025-05-11 10:06 | Outpatient (REF) | payer OTHER, SELFPAY ==
--- NOTE | ~2025-05-11 | MM_ITS ---
EXAMINATION: DXA BONE DENSITY AXIAL HISTORY: M81.0 - Age-related osteoporosis without current pathological fracture TECHNIQUE: [employer] Dual energy absorptiometry (DEXA) of the lumbar spine, total left hip, and femoral neck was performed. COMPARISON: Comparison is made with the prior examination dated 03/28/2021. FINDINGS: The bone mineral density of the lumbar spine is 0.839 g/cm2, corresponding to a T-score of -2.8, and a Z-score of -1.5. This is indicative of osteoporosis. This represents a BMD change of -8.9% compared to the prior exam. This is statistically significant. The bone mineral density of the left total hip is 0.809 g/cm2, corresponding to a T-score of -1.6, and a Z-score of -0.6. This is indicative of osteopenia. This represents a BMD change of -9.1% compared to the prior exam. This is statistically significant. The bone mineral density of the left femoral neck is 0.844 g/cm2, corresponding to a T-score of -1.4, and a Z-score of -0.1. This is indicative of osteopenia. This represents a BMD change of -3.2% compared to the prior exam. FRACTURE RISK: The FRAX index suggests a ten year probability of major osteoporotic fracture of 11.8%, and of hip fracture 1.0%. MM/XR DEXA axial skeleton IMPRESSION: Based on bone mineral density, and according to World Health Organization (WHO) criteria, the diagnosis is consistent with osteoporosis. Statistically, 68% of repeat scans fall within 1 SD (+/- 0.010 g/cm2 for AP spine L1-L4) and 1 SD (+/- 0.012 g/cm2 for femur total) FRAX is a trademark of the [employer], a World Health Organization (WHO) Collaborating Center. Electronically signed by: Pardeep Lindsay MD 05/11/2025 11:07 AM EDT
--- OUTSIDE RECORDS SUMMARY | 2025-05-11 12:11 | XMS_ITS | Encounter Summary ---
Author Organization [facility] Address [address] [place] [address] Phone Care Team Providers Care Assistant Chief Of Police Name Role Phone Kev Rodarte MD Unavailable [phone] Barry Richardson MD Unavailable [phone] Ladonna Ramirez PA-C Unavailable [phone] Kev Rodarte MD Primary Care Provider [phone] Reason for Referral * Physical Therapy (Elective) - Closed Specialty Diagnoses / Procedures Referred By Domenica molina Referred To Contact Physical Therapy Diagnoses Encounter for rehabilitation Right Knee pain M25.561 and Right Leg pain R29.898 Isma Milan MD Phone: tel: fax: [address] [address] Phone: tel: Referral ID Status Reason Start Date Expiration Date Visits Re quested Visits Authorized [id number] Closed 01/22/2020 04/21/2020 25 25 Encounter Details Date Type Department Care Team (Latest Contact Info) Description 01/19/2020 Transcribe Orders [facility] [address] [place], [place] [id number] Isma Milan MD [address] [place] [address] [place] [address] Encounter for rehabilitation (Primary Dx) Social History Tobacco Use Types Packs/Day Years Used Date Smoking Tobacco: Never Assessed Comments Unknown Sex and Gender Information Value Date Recorded Sex Assigned at Female 06/12/2019 12:05 PM EST Legal Sex Female 9:39 PM EDT Gender Identity Female 06/12/2019 12:05 PM EST Sexual Orientation Choose not to disclose 2023 10:20 PM EDT documented as of this encounter Plan of Treatment Not on file documented as of this encounter Procedures Procedure Name Priority Date/Time Associated Diagnosis Comments AMB REFERRAL TO [facility] PHYSICAL THERAPY Routine 01/22/2020 3:59 PM EDT Encounter for rehabilitation documented in this encounter Results * Ambulatory referral to [facility] Physical Therapy (01/22/2020 3:59 PM EDT) Isma Milna MD AMB [facility] REFERRALS Final Re sult documented in this encounter Visit Diagnoses Diagnosis Encounter for rehabilitation- Primary documented in this encounter Care Teams Assistant Chief Of Police Relationship Specialty Start Date End Date Kev Rodarte MD [address] [place] [id number] PCP - General 07/18/17 Kev Rodarte MD [address] [place] [address] [address] [place] [phone] Historical LMR Provider 05/02/17 Barry Amezcua MD [address] [place] [address] Historical LMR Provider 05/02/17 Ladonna Ramirez PA-C [address] [place] [address] Orthopedics & Sports Medicine, [place] [address] [email or web address] Historical LMR Provider 05/02/17 07/22/21 documented as of this encounter Additional Source Comments The information contained in this document represents components of the legal health record. It is not the complete legal health record.[facility]
--- OUTSIDE RECORDS SUMMARY | 2025-05-11 12:11 | XMS_ITS | Clinical Summary ---
Author Organization [facility] Address [address] [place] [address] Phone Care Team Providers Care Roller Name Role Phone Cayden Kev Montoya MD Primary Care Provider [phone] Allergies No known active allergies Medications amLODIPine (NORVASC) 10 MG tablet Take 10 mg by mouth. Active tacrolimus (PROTOPIC) 0.1 % ointment 01/10/2023 Active Active Problems Problem Noted Date Diagnosed Date Iritis 03/17/2024 Social History Tobacco Use Types Packs/Day Years Used Date Smoking Tobacco: Every Day Cigarettes Comments:3 per day Education Answer Date Recorded Are you interested in more education? Not on karl e 11/09/2022 Are you concerned about learning? Not on file 11/09/2022 No 11/09/2022 No 11/09/2022 Digital Access Answer Date Recorded No 12/08/2022 No 12/08/2022 Reliable internet access at home? Not on file 12/08/2022 Device with a working camera? Not on file Intimate Partner Violence Answer Date R ecorded Are you denied basic needs s uch as food, clothing, or medical care? No 03/16/2024 In the past 12 months have y ou been in a relationship with a person who hurts, threatens, or tries to control you? No 03/16/2024 Are you denied basic needs s uch as food, clothing, or medical care? No 03/16/2024 In the past 12 months have y ou been in a relationship with a person who hurts, threatens, or tries to control you? No 03/16/2024 Comments Unknown Sex and Gender Information Value Date Recorded Sex Assigned at Female 06/12/2019 12:05 PM EST Legal Sex Female 9:39 PM EDT Gender Identity Female 06/12/2019 12:05 PM EST Sexual Orientation Choose not to disclose 2023 10:20 PM EDT Last Filed Vital Signs Vital Sign Reading Time Taken Comments Blood Pressure 155/79 03/17/2024 12:55 AM EDT Pulse 62 03/17/2024 12:55 AM EDT Temperature 36 C (96.8 F) 03/17/2024 12:55 AM EDT Respiratory Rate 16 03/17/2024 12:55 AM EDT Oxygen Saturation 100% 03/17/2024 12:55 AM EDT Inhaled Oxygen Concentration - - Weight 56.7 kg (125 lb) 03/16/2024 8:48 PM EDT Height 162.6 cm (5' 4 ) 03/16/2024 8:48 PM EDT Body Mass Index 21.46 03/16/2024 8:48 PM EDT Plan of Treatment Health Maintenance Due Date Last Done Comments LIPID PANEL 1966 DEPRESSION SCREENING 1978 SMOKING Hx and SMOKELESS TOBACCO SCREENING 11/14/1979 HEPATITIS C SCREENING 1984 HIV ONE-TIME SCREENING (18-65 YEARS) 1984 PAP SMEAR 11/14/1987 COLOGUARD 11/14/2011 COLONOSCOPY 11/14/2011 COLORECTAL CANCER SCREENING 11/14/2011 FIT TEST 11/14/2011 FOBT 11/14/2011 SIGMOIDOSCOPY 11/14/2011 VIRTUAL COLONOSCOPY 11/14/2011 ZOSTER VACCINES (1 of 2) 2016 PNEUMOCOCCAL VACCINES (50+ years) (2 of 2 - PCV) 07/26/2017 07/26/2016 INFLUENZA VACCINE (#1) 2025 , 06/27/2022, 06/18/2020, Additional history exists COVID-19 VACCINE ( season) 2025 04/25/2023, 05/31/2022, 07/19/2021, Additional history exists MAMMOGRAM 12/09/2025 12/10/2023, 04/14, 12/27/2022, Additional history exists Adult Td,Tdap Booster 01/29/2027 01/29/2017 RSV VACCINE (1 - 1-dose 75+ series) 2041 HEPATITIS A VACCINES Aged Out No long er eligible based on patient's age to complete this topic HIB VACCINES Aged Out No longer eligi ble based on patient's age to complete this topic MENINGOCOCCAL VACCINES (ACWY) Aged Out No longer eligible based on patient's age to complete this topic MENINGOCOCCAL VACCINES (B) Aged Out N o longer eligible based on patient's age to complete this topic Medical Devices Not on file Procedures Procedure Name Priority Date/Time Associated Diagnosis Comments BI MRI BREAST WITH AND WITHOUT CONTRAST (BILATERAL) Routine 12/10/2023 5:49 PM EDT Unspecified benign mammary dysplasia of right breast Unspecified benign mammary dysplasia of left breast Other specified personal risk factors, not elsewhere classified from Last 3 Months or Most Recently Relevant to Health Maintenance Results * BI MRI BREAST WITH AND WITHOUT CONTRAST (BILATERAL) (12/10/2023 5:49 PM EDT) Anatomical Region Laterality Modality Breast Left, Breast Right, Breast Bilateral Bila teral Magnetic Resonance 12/16/2023 9:27 AM EDT Impressions 12/16/2023 10:00 AM EDT No MRI evidence of malignancy in either breast. New biopsy marker clip in the lower outer left breast. BI-RADS 2 BENIGN Please note that mammography offers complementary information to MRI and certain findings may be visible primarily on mammography. The patient should keep all scheduled mammography appointments and continue annual screening mammography. Narrative 12/16/2023 10:00 AM EDT BI MRI BREAST WITH AND WITHOUT CONTRAST (BILATERAL) Additional patient information: Elevated lifetime risk of developing breast cancer. High risk screening. Personal history of benign left breast MR guided biopsy, 2022. Personal history of bilateral atypia with subsequent excision, right breast ALH in 2015 and left breast ADH in 2010. TECHNIQUE: MR imaging of the breasts was performed using T1, T2 and fat- saturated techniques. Dynamic multiphase imaging was also performed after the uneventful administration of 11.5 mL intravenous dotarem contrast agent. Computer generated 3D reconstruction and enhancement kinetic analysis was utilized by the radiologist in the interpretation of this examination. COMPARISON: Comparison is made with relevant prior imaging, including bilateral breast MRI of 10/27/2021 and bilateral breast MRI of 12/07/2022, [facility].. Breast composition: The breast tissue is composed of heterogeneously dense fibroglandular elements bilaterally. Background parenchymal enhancement: Mild. FINDINGS: Right There are no suspicious masses or areas of abnormal non-mass enhancement in the right breast. There is stable postsurgical distortion in the upper outer breast, posterior depth with no suspicious enhancement. Stable hypointense oval enhancing nodule in the 8 to 9:00 position, posterior depth, measuring 0.6 cm. There is no axillary or internal mammary lymphadenopathy on the right. Left There are no suspicious masses or areas of abnormal non-mass enhancement in the left breast. There is susceptibility artifact at the site of cork shaped biopsy marker clip in the 5 to 6:00 position from most recent MR guided biopsy, there is no residual suspicious enhancement in this location, core biopsy revealed benign changes. There is no axillary or internal mammary lymphadenopathy on the left. Other No incidental or abnormal findings. Procedure Note Loan Lo MD - 12/16/2023 BI MRI BREAST WITH AND WITHOUT CONTRAST (BILATERAL) Additional patient information: Elevated lifetime risk of developingbreast cancer. High risk screening. Personal history of benign left breastMR guided biopsy, 2022. Personal history of bilateral atypia withsubsequent excision, right breast ALH in 2015 and left breast ADH [id number]. TECHNIQUE: MR imaging of the breasts was performed using T1, T2 andfat-saturated techniques. Dynamic multiphase imaging was also performedafter the uneventful administration of 11.5 mL intravenous dotaremcontrast agent. Computer generated 3D reconstruction and enhancementkinetic analysis was utilized by the radiologist in the interpretation ofthis examination. COMPARISON: Comparison is made with relevant prior imaging, includingbilateral breast MRI of 10/27/2021 and bilateral breast MRI of 12/07/2022,[facility].. Breast composition: The breast tissue is composed of heterogeneously densefibroglandular elements bilaterally. Background parenchymal enhancement: Mild. FINDINGS: Right There are no suspicious masses or areas of abnormal non-mass enhancementin the right breast. There is stable postsurgical distortion in the upperouter breast, posterior depth with no suspicious enhancement. Stablehypointense oval enhancing nodule in the 8 to 9:00 position, posteriordepth, measuring 0.6 cm. There is no axillary or internal mammary lymphadenopathy on the right. Left There are no suspicious masses or areas of abnormal non-mass enhancementin the left breast. There is susceptibility artifact at the site of corkshaped biopsy marker clip in the 5 to 6:00 position from most recent MRguided biopsy, there is no residual suspicious enhancement in thislocation, core biopsy revealed benign changes. There is no axillary or internal mammary lymphadenopathy on the left. Other No incidental or abnormal findings. IMPRESSION: No MRI evidence of malignancy in either breast. New biopsy marker clip inthe lower outer left breast. BI-RADS 2 BENIGN Please note that mammography offers complementary information to MRI andcertain findings may be visible primarily on mammography. The patientshould keep all scheduled mammography appointments and continue annualscreening mammography. Korey Barrios MD [facility] MR BREAST Final Result from Last 3 Months or Most Recently Relevant to Health Maintenance Insurance [facility] HMO Care Teams Roller Relationship Specialty Start Date End Date Kev Rodarte MD [address] [place] [phone] PCP - General 07/18/17 Additional Source Comments The information contained in this document represents components of the legal health record. It is not the complete legal health record.[facility]
--- OUTSIDE RECORDS SUMMARY | 2025-05-11 12:11 | XMS_ITS | Encounter Summary ---
Author Organization [facility] Address [address] [place] [address] Phone Care Team Providers Care Manager Loan Name Role Phone Kev Rodarte MD Primary Care Provider [phone] Encounter Details Date Type Department Care Team (Late st Contact Info) Description 11/11/2023 Procedure Pass [facility] [address] [place] [address] Social History Tobacco Use Types Packs/Day Years [...] with a working camera? Not on file Comments Unknown Sex and Gender Information Value Date Recorded Sex Assigned at Female 06/12/2019 12:05 PM EST Legal Sex Female 9:39 PM EDT Gender Identity Female 06/12/2019 12:05 PM EST Sexual Orientation Choose not to disclose 2023 10:20 PM EDT documented as of this encounter Plan of Treatment Not on file documented as of this encounter Visit Diagnoses Not on filedocumented in this encounter Care Teams Manager Loan Relationship Specialty Start Date End Date Kev Rodarte MD [address] [place] [address] PCP - General 07/18/17 documented as of this encounter Additional Source Comments The information contained in this document represents components of the legal health record. It is not the complete legal health record.[facility]
--- OUTSIDE RECORDS SUMMARY | 2025-05-11 12:11 | XMS_ITS | Encounter Summary ---
Author Organization [facility] Address [address] [place] [address] Phone Care Team Providers Care Tap And Die Maker Technician Name Role Phone Kev Rodarte MD Unavailable [phone] Barry Richardson MD Unavailable [phone] Ladonna Ramirez PA-C Unavailable [phone] Kev Rodarte MD Primary Care Provider [phone] Encounter Details Date Type Department Care Team (Late st Contact Info) Description 11/03/2020 Ancillary Orders [facility] & Sports Medicine [address] [place] [address] Rajat Flannery PA-C [address] [place] [address] Orthopedics & Sports Medicine, [facility] [place] [address] Left foot pain Social History Tobacco Use Types Packs/Day Years Used Date Smoking Tobacco: Every Day Cigarettes Comments:3 per day Comments Unknown Sex and Gender Information Value Date Recorded Sex Assigned at Female 06/12/2019 12:05 PM EST Legal Sex Female 9:39 PM EDT Gender Identity Female 06/12/2019 12:05 PM EST Sexual Orientation Choose not to disclose 2023 10:20 PM EDT documented as of this encounter Plan of Treatment Not on file documented as of this encounter Results * XR Calcaneus 2 or More Views (Left) (11/03/2020 1:18 PM EDT) Narrative SYSTEMGENERATED, DOCUMENTATION - 11/03/2020 1:18 PM EDT This image report has been auto-finalized and has not been read by a Radiologist. Interpretation has been included in the provider encounter note for this date of service. Rajat Flannery PA-C IMG XR LOWER EXTREMITY Final Result documented in this encounter Visit Diagnoses Diagnosis Left foot pain Pain in soft tissues of limb Left foot pain Pain in soft tissues of limb documented in this encounter Care Teams Tap And Die Maker Technician Relationship Specialty Start Date End Date Kev Rodarte MD [address] [place] [phone] [facility] - General 07/18/17 Kev Rodarte MD [address] [place] [address] [address] [place] [phone] Historical LMR Provider 05/02/17 2 Barry Richardson MD [address] [place] [address] Historical LMR Provider 05/02/17 Ladonna Ramirez PA-C [address] [place] [address] Orthopedics & Sports Medicine, [facility] [place] [address] Historical LMR Provider 05/02/17 07/22/21 documented as of this encounter Additional Source Comments The information contained in this document represents components of the legal health record. It is not the complete legal health record.[facility]
--- OUTSIDE RECORDS SUMMARY | 2025-05-11 12:11 | XMS_ITS | Encounter Summary ---
Author Organization [facility] Address [address] [place] [id number] Phone Care Team Providers Care [employer] Worker Name Role Phone Kev Rodarte MD Primary Care Provider [phone] Reason for Referral * MRI/CAT Scan - Closed Specialty Diagnoses / Procedures Referred By Domenica molina Referred To Contact Radiology Diagnoses Unspecified benign mammary dysplasia of right breast Unspecified benign mammary dysplasia of left breast Other specified personal risk factors, not elsewhere classified Procedures MRI Breast (Bilateral) CHG MRI BREAST WITHOUT&WITH CONTRAST W/CAD BILATERAL Korey Barrios MD [address] [place] [address] Phone: tel: Referral ID Status Reason Start Date Expiration Date Visits Re quested Visits Authorized [id number] Closed 11/12/2023 01/11/2024 1 1 Encounter Details Date Type Department Care Team (Latest Contact Info) Description 11/11/2023 Transcribe Orders Virtual Department [address] [place] [address] Korey Barrios MD [address] [place] [address] Unspecified benign mammary dysplasia of right breast (Primary Dx); Unspecified benign mammary dysplasia of left breast; Other specified personal risk factors, not elsewhere classified Social History Tobacco Use Types Packs/Day Years [...] documented as of this encounter Results * BI MRI BREAST WITH AND [...] 10/27/2021 and bilateral breast MRI of 12/07/2022, [facility].. Breast composition: The breast tissue is [...] [facility] in 2015 and left breast ADH [id number]. TECHNIQUE: MR imaging of the breasts was performed using T1, T2 andfat-saturated techniques. Dynamic multiphase imaging was also performedafter the uneventful administration of 11.5 mL intravenous dotaremcontrast agent. Computer generated 3D reconstruction and enhancementkinetic analysis was utilized by the radiologist in the interpretation ofthis examination. COMPARISON: Comparison is made with relevant prior imaging, includingbilateral breast MRI of 10/27/2021 and bilateral breast MRI of 12/07/2022,[facility].. Breast composition: The breast tissue is [...] and continue annualscreening mammography. Korey Barrios MD IM MR BREAST Final Result documented in this encounter Visit Diagnoses Diagnosis Unspecified benign mammary dysplasia of right breast- Primary Unspecified benign mammary dysplasia of left breast Other specified personal risk factors, not elsewhere classified Unspecified benign mammary dysplasia of right breast Unspecified benign mammary dysplasia of left breast Other specified personal risk factors, not elsewhere classified documented in this encounter Care Teams [employer] Work[employer] Relationship Specialty Start Date End Date Po, Kev Montoya MD [address] [place] [address] PCP - General 07/18/17 documented as of this encounter Additional Source Comments The information contained in this document represents components of the legal health record. It is not the complete legal health record.[facility]
== END 2025-05-11 10:07 | disposition home or self-care (01) ==
LOC: HO.MAMMO 10:06
PROVIDERS: PCP Internal Medicine; Visit Provider Internal Medicine
DX: Z12.31 Encounter for screening mammogram for malignant neoplasm of breast (principal); M81.0 Age-related osteoporosis without current pathological fracture
CPT/HCPCS: 77063; 77067; 77080

== ENCOUNTER → 2025-05-11 10:30 | Outpatient (BNV) | payer OTHER, SELFPAY | PROVIDERS: PCP Internal Medicine; Visit Provider Radiology Diagnostic Radiology | DX: E28.39 Other primary ovarian failure (principal) | CPT/HCPCS: 77080 ==